=== PATIENT | female | born 1955 | race Caucasian/White ===

== ENCOUNTER 2024-01-23 18:45 | Inpatient (IN) | payer MEDICARE, OTHER ==
[~2024-01-23] VITALS: Ht 165.1 cm; Wt 80.1 kg
[2024-01-23 19:00] VITALS: PULSE 128; PULSE 129; RESP 20; O2SAT 98
[2024-01-23] MEDS ORDERED: 0.9% SODIUM CHLORIDE 10 ML SYRINGE IVP PRN (19:15)
[2024-01-23 19:45] LABS: ABG HCO3 23.1 mmol/L (22.0-26.0); ABG METHEMOGLOBIN 0.8 % (0.0-1.5); ABG OXYGEN CONTENT 16.6 mL/dL (15.0-23.0); ABG OXYGEN SATURATION 98.5 % (95.0-98.0); ABG OXYHEMOGLOBIN 97.7 % (94.0-100.0); ABG PCO2 41 mmHg (35-45); ABG PH 7.371 (7.35-7.450); PO2, ARTERIAL BG 125.2 mmHg (79.0-87.0); SITE, BLOOD GAS LFT RADIAL; SOURCE, BLOOD GAS ARTERIAL; TEMPERATURE, FAHRENHEIT, BG 102.4 FAHREN (96.0-98.6)
[2024-01-23] MEDS ORDERED: ONDANSETRON HCL 4 MG/2 ML VIAL IVP PRN (19:45)
[2024-01-23] MEDS ORDERED: BISACODYL 10 MG RECTAL RECTAL SUPPOSITORY PR PRN (19:45)
[2024-01-23 19:46] LABS: ALLEN TEST, BLOOD GAS Positive; O2 DEVICE,BLOOD GAS VENTILATOR (ROOM AIR); PEEP,BG 5 cm H2O; SPONTANEOUS VT, BG 414 ml; VT, ABG 400 ml
[2024-01-23 20:03] LABS: BASOPHILS % (AUTO) 0.3 % (0.0-2.0); EOSINOPHILS % (AUTO) 1.7 % (1.0-6.0); HEMATOCRIT 36.3 % (36-46); HEMOGLOBIN 11.6 g/dL (12.0-16.0); LYMPHOCYTES # (AUTO) 0.2 K/uL (1.0-4.8); LYMPHOCYTES % (AUTO) 2.3 % (22.0-44.0); MEAN CORPUSCULAR HEMOGLOBIN 28.6 pg (26.0-34.0); MEAN CORPUSCULAR VOLUME 90 fL (80-100); MONOCYTES # (AUTO) 0.5 K/uL (0.1-1.0); MONOCYTES % (AUTO) 4.8 % (2.0-9.0); NEUTROPHILS # (AUTO) 9.5 K/uL (1.8-7.7); PLATELET COUNT (AUTO) 408 K/uL (150-450); RED BLOOD CELL COUNT(AUTO) 4.05 MIL/uL (4.00-5.20); RED CELL DISTRIBUTION WIDTH 19.5 % (11.5-14.5); WHITE BLOOD COUNT (AUTO) 10.5 K/uL (4.5-11.0)
[2024-01-23] MEDS: PROPOFOL 1000 MG/ISO-OSM 100 ML IV PRN (20:03)
[2024-01-23 20:04] LABS: NEUTROPHILS % (AUTO) 90.9 % (40.0-70.0)
[2024-01-23 20:07] LABS: COVID AG,FIA SOURCE NASAL SWAB
[2024-01-23 20:09] LABS: ANION GAP 14 mmol/L (8-16); CALCIUM, TOTAL 9.5 mg/dL (8.8-10.5); CARBON DIOXIDE 25 mmol/L (22-29); CHLORIDE 99 mmol/L (98-107); CREATININE 1.78 mg/dL (0.60-1.30); GLOMERULAR FILTR. RATE CALC 28 mL/min (>60); GLUCOSE,RANDOM 168 mg/dL (70-110); INR 1.1 (0.9-1.1); POTASSIUM 4.8 mmol/L (3.5-5.1); PROTHROMBIN TIME 11.6 SEC (9.4-11.6); SODIUM SERUM 138 mmol/L (136-145); UREA NITROGEN, BLOOD 27 mg/dL (7-18)
[2024-01-23 20:10] LABS: APPEARANCE,URINE TURBID (CLEAR); BILIRUBIN,URINE NEGATIVE (NEGATIVE); COLOR,URINE DARK ORANGE (YELLOW); GLUCOSE, URINE (UA) 150-200 mg/dL (NEGATIVE); KETONES,URINE NEGATIVE (NEGATIVE); LEUKOCYTE ESTERASE ,URINE LARGE (NEGATIVE); NITRATE,URINE NEGATIVE (NEGATIVE); OCCULT BLOOD,URINE SMALL (NEGATIVE); PROTEIN,URINE 100-200,SEE CONFIRM mg/dL (NEGATIVE); SPECIFIC GRAVITIY, URINE 1.013 (1.003-1.030); UROBILINOGEN,URINE <=1.0 mg/dL (<=1.0)
[2024-01-23] MEDS: ACETAMINOPHEN 1000 MG/ISO-OSM 100 ML IV ONE (20:13)
[2024-01-23] MEDS: SODIUM CHLORIDE 0.9% 1,750 ML IV ONE (20:13)
[2024-01-23 20:14] LABS: PLATELET MORPHOLOGY COMMENT LARGE PLTS PRESENT; RBC MORPHOLOGY COMMENT NORMAL RBC MORPH
[2024-01-23 20:15] LABS: ALANINE AMINOTRANSFERASE 14 U/L (12-78); ALBUMIN 2.7 g/dL (3.4-5.0); ALKALINE PHOSPHATASE 115 U/L (46-116); ASPARTATE AMINOTRANSFERASE 32 U/L (15-37); BILIRUBIN,TOTAL 0.5 mg/dL (0.1-1.0); TOTAL PROTEIN, SERUM 9.4 g/dL (6.4-8.2)
[2024-01-23 20:17] LABS: TROPONIN I-HIGH SENSITIVITY 21 ng/L (<51)
[2024-01-23 20:19] LABS: B-TYPE NATRIURETIC PEPTIDE 103 pg/mL (0-100)
[2024-01-23 20:20] LABS: SULFOSALICYLIC ACID,URINE 3+ (Negative)
[2024-01-23 20:21] LABS: BACTERIA,URINE Few /HPF (None Seen); SQUAMOUS EPITHELIAL CELL,UR Moderate /LPF (None Seen); WBC,URINE >100 /HPF (0-5)
[2024-01-23] MEDS: AMPICILLIN SODIUM/SULBACTAM NA 3 GM in SODIUM CHLORIDE 0.9% 100 ML IV ONE (20:23)
[2024-01-23 20:25] LABS: LACTIC ACID 2.5 mmol/L (0.4-2.0)
[2024-01-23 20:28] LABS: SARS-COV2 (COVID) ANTIGEN,FIA Negative (Negative)
[2024-01-23 20:33] LABS: INFLUENZA TYPE A NEGATIVE FOR TYPE A (NEGATIVE); INFLUENZA TYPE B NEGATIVE FOR TYPE B (NEGATIVE)
[2024-01-23] MEDS: FentaNYL CIT 1000MCG/0.9% NACL 100 ML IV PRN (21:22)
[2024-01-23 22:13] VITALS: PULSE 105; RESP 21; O2SAT 100
[2024-01-24] VITALS (11 sets, daily range): BP systolic 95–119; BP diastolic 55–64; PULSE 79–97; RESP 20–28; TEMP 98.1–100.4; O2SAT 96–100
[2024-01-24] MEDS: CHLORHEXIDINE GLUCONATE 2% TOWELETTE [2'S/6'S] TP SCH
[2024-01-24] MEDS: HEPARIN SODIUM,PORCINE 5,000 UNITS/ML VIAL SQ SCH (01:16)
[2024-01-24] MEDS: PIPERACILLIN/TAZO 3.375 GM/D5W 50 ML IV SCH (02:44)
[2024-01-24] MEDS: PANTOPRAZOLE SODIUM 40 MG/VIAL IVP SCH (09:18)
[2024-01-24] MEDS: FentaNYL CIT 1000MCG/0.9% NACL 100 ML IV PRN (09:19)
[2024-01-24] MEDS ORDERED: SODIUM CHLORIDE 0.9% 250 ML IV ONE (09:26)
[2024-01-24 10:22] LABS: ABG BASE EXCESS -2.5 mmol/L (-2.0-3.0); ABG CARBOXYHEMOGLOBIN 0.3 % (0.0-1.5); ABG HCO3 22.5 mmol/L (22.0-26.0); ABG METHEMOGLOBIN 0.3 % (0.0-1.5); ABG OXYGEN CONTENT 14.1 mL/dL (15.0-23.0); ABG OXYGEN SATURATION 94.8 % (95.0-98.0); ABG OXYHEMOGLOBIN 94.2 % (94.0-100.0); ABG PCO2 41 mmHg (35-45); ABG PH 7.367 (7.35-7.450); ABG TOTAL HEMOGLOBIN 10.6 G/dL (12.0-18.0); PO2, ARTERIAL BG 79.2 mmHg (79.0-87.0); SOURCE, BLOOD GAS ARTERIAL; TEMPERATURE, FAHRENHEIT, BG 99.6 FAHREN (96.0-98.6)
[2024-01-24 10:25] LABS: ABG A-A DIFF O2 122.5 mmHg (10-20.0); ALLEN TEST, BLOOD GAS Positive; O2 DEVICE,BLOOD GAS VENTILATOR (ROOM AIR); SITE, BLOOD GAS LFT BRACHIAL
[2024-01-24 10:26] LABS: PEEP,BG 5 cm H2O; SPONTANEOUS VT, BG 372 ml; VT, ABG 400 ml
[2024-01-24 10:30] LABS: CALCIUM, TOTAL 8.4 mg/dL (8.8-10.5); CREATININE 1.73 mg/dL (0.60-1.30)
[2024-01-24 10:36] LABS: BILIRUBIN,TOTAL 0.2 mg/dL (0.1-1.0); TOTAL PROTEIN, SERUM 7.7 g/dL (6.4-8.2)
[2024-01-24 11:19] LABS: BASOPHILS % (AUTO) 0.5 % (0.0-2.0); HEMATOCRIT 32.9 % (36-46); HEMOGLOBIN 10.3 g/dL (12.0-16.0); LYMPHOCYTES # (AUTO) 0.3 K/uL (1.0-4.8); MEAN CORPUSCULAR HEMOGLOBIN 28.3 pg (26.0-34.0); MEAN CORPUSCULAR HGB CONC 31.4 G/dL (31.0-37.0); MEAN CORPUSCULAR VOLUME 90 fL (80-100); MONOCYTES # (AUTO) 0.6 K/uL (0.1-1.0); MONOCYTES % (AUTO) 6.7 % (2.0-9.0); NEUTROPHILS # (AUTO) 8.5 K/uL (1.8-7.7); PLATELET COUNT (AUTO) 337 K/uL (150-450); RED BLOOD CELL COUNT(AUTO) 3.65 MIL/uL (4.00-5.20); RED CELL DISTRIBUTION WIDTH 19.2 % (11.5-14.5); WHITE BLOOD COUNT (AUTO) 9.5 K/uL (4.5-11.0)
[2024-01-24 11:20] LABS: NEUTROPHILS % (AUTO) 88.8 % (40.0-70.0)
[2024-01-24 12:45] LABS: GLUCOMETER DEV NAME(LOC) ERT.5; GLUCOSE,POINT OF CARE 141 MG/DL (70-110)
[2024-01-24 22:26] LABS: GLUCOMETER DEV NAME(LOC) ICUN.5; GLUCOSE,POINT OF CARE 117 MG/DL (70-110)
[2024-01-24] MEDS: ETHYL ALCOHOL 62% ANTISEPTIC NASAL SANITIZER 0.6 ML AMPUL NASAL SCH (22:59)
[2024-01-25] VITALS (16 sets, daily range): BP systolic 91–116; BP diastolic 50–64; PULSE 73–89; RESP 19–24; TEMP 98.1–99; O2SAT 91–99
[2024-01-25 06:04] LABS: BASOPHILS % (AUTO) 0.2 % (0.0-2.0); EOSINOPHILS % (AUTO) 0.4 % (1.0-6.0); HEMATOCRIT 28.4 % (36-46); LYMPHOCYTES # (AUTO) 0.2 K/uL (1.0-4.8); LYMPHOCYTES % (AUTO) 4.4 % (22.0-44.0); MEAN CORPUSCULAR HEMOGLOBIN 28.6 pg (26.0-34.0); MEAN CORPUSCULAR HGB CONC 31.9 G/dL (31.0-37.0); MEAN CORPUSCULAR VOLUME 90 fL (80-100); MONOCYTES # (AUTO) 0.7 K/uL (0.1-1.0); MONOCYTES % (AUTO) 14.3 % (2.0-9.0); NEUTROPHILS # (AUTO) 4.1 K/uL (1.8-7.7); NEUTROPHILS % (AUTO) 80.7 % (40.0-70.0); PLATELET COUNT (AUTO) 262 K/uL (150-450); RED BLOOD CELL COUNT(AUTO) 3.16 MIL/uL (4.00-5.20); RED CELL DISTRIBUTION WIDTH 19.4 % (11.5-14.5); WHITE BLOOD COUNT (AUTO) 5.1 K/uL (4.5-11.0)
[2024-01-25 06:13] LABS: CALCIUM, TOTAL 8.2 mg/dL (8.8-10.5); CREATININE 1.79 mg/dL (0.60-1.30); POTASSIUM 3.8 mmol/L (3.5-5.1)
[2024-01-25 12:48] LABS: ABG A-A DIFF O2 133.9 mmHg (10-20.0); ABG BASE EXCESS -3.1 mmol/L (-2.0-3.0); ABG CARBOXYHEMOGLOBIN 0.3 % (0.0-1.5); ABG HCO3 22.1 mmol/L (22.0-26.0); ABG OXYGEN CONTENT 13.8 mL/dL (15.0-23.0); ABG OXYGEN SATURATION 93.9 % (95.0-98.0); ABG OXYHEMOGLOBIN 93.6 % (94.0-100.0); ABG PCO2 38 mmHg (35-45); ABG PH 7.382 (7.35-7.450); ABG TOTAL HEMOGLOBIN 10.4 G/dL (12.0-18.0); ALLEN TEST, BLOOD GAS Positive; O2 DEVICE,BLOOD GAS VENTILATOR (ROOM AIR); PO2, ARTERIAL BG 71.7 mmHg (79.0-87.0); SITE, BLOOD GAS LFT RADIAL; SOURCE, BLOOD GAS ARTERIAL; TEMPERATURE, FAHRENHEIT, BG 98.6 FAHREN (96.0-98.6); VENT MODE, BG CPAP (ROOM AIR)
[2024-01-25 12:49] LABS: CPAP, BG 0 cm H2O; PRESSURE SUPPORT, BG 8 cm H2O; SPONTANEOUS VT, BG 350 ml
[2024-01-25 16:50] LABS: GLUCOMETER DEV NAME(LOC) ICUN.5; GLUCOSE,POINT OF CARE 118 MG/DL (70-110)
[2024-01-26] VITALS (15 sets, daily range): BP systolic 91–140; BP diastolic 43–71; PULSE 65–80; RESP 20–26; TEMP 97–99.2; O2SAT 91–95
[2024-01-26 06:18] LABS: BASOPHILS % (AUTO) 0.4 % (0.0-2.0); EOSINOPHILS % (AUTO) 0.4 % (1.0-6.0); HEMATOCRIT 30.9 % (36-46); HEMOGLOBIN 9.7 g/dL (12.0-16.0); LYMPHOCYTES # (AUTO) 0.6 K/uL (1.0-4.8); LYMPHOCYTES % (AUTO) 13.7 % (22.0-44.0); MEAN CORPUSCULAR HEMOGLOBIN 28.6 pg (26.0-34.0); MEAN CORPUSCULAR HGB CONC 31.5 G/dL (31.0-37.0); MEAN CORPUSCULAR VOLUME 91 fL (80-100); MONOCYTES # (AUTO) 0.7 K/uL (0.1-1.0); MONOCYTES % (AUTO) 16.5 % (2.0-9.0); NEUTROPHILS # (AUTO) 2.8 K/uL (1.8-7.7); PLATELET COUNT (AUTO) 250 K/uL (150-450); RED CELL DISTRIBUTION WIDTH 19.8 % (11.5-14.5); WHITE BLOOD COUNT (AUTO) 4.1 K/uL (4.5-11.0)
[2024-01-26 06:20] LABS: ALBUMIN 1.8 g/dL (3.4-5.0); BILIRUBIN,TOTAL 0.4 mg/dL (0.1-1.0); CALCIUM, TOTAL 8.1 mg/dL (8.8-10.5); CREATININE 2.18 mg/dL (0.60-1.30); MAGNESIUM 1.7 mg/dL (1.80-2.40); PHOSPHORUS 5.1 mg/dL (2.5-4.9); POTASSIUM 3.7 mmol/L (3.5-5.1); TOTAL PROTEIN, SERUM 7.2 g/dL (6.4-8.2)
[2024-01-26 08:36] LABS: GLUCOMETER DEV NAME(LOC) ICU.S6; GLUCOSE,POINT OF CARE 119 MG/DL (70-110)
[2024-01-26 08:36] LABS: GLUCOMETER DEV NAME(LOC) ICU.S6; GLUCOSE,POINT OF CARE 105 MG/DL (70-110)
[2024-01-26 08:50] LABS: GLUCOMETER DEV NAME(LOC) ICUN.5; GLUCOSE,POINT OF CARE 120 MG/DL (70-110)
[2024-01-26 13:46] LABS: GLUCOMETER DEV NAME(LOC) ICU.S6; GLUCOSE,POINT OF CARE 120 MG/DL (70-110)
[2024-01-26] MEDS: PIPERACILLIN SODIUM/TAZOBACTAM 2.25 GM in DEXTROSE 5%-WATER 50 ML IV SCH (14:21)
[2024-01-26] MEDS: SODIUM CHLORIDE 0.9% 1,000 ML IV SCH (18:32)
[2024-01-26 18:40] LABS: GLUCOMETER DEV NAME(LOC) ICU.S6; GLUCOSE,POINT OF CARE 105 MG/DL (70-110)
[2024-01-27] VITALS (12 sets, daily range): BP systolic 97–132; BP diastolic 53–72; PULSE 64–88; RESP 19–34; TEMP 96.3–98.2; O2SAT 69–97
[2024-01-27 01:31] LABS: GLUCOMETER DEV NAME(LOC) ICUN.5; GLUCOSE,POINT OF CARE 105 MG/DL (70-110)
[2024-01-27 02:34] LABS: APPEARANCE,URINE TURBID (CLEAR); BILIRUBIN,URINE NEGATIVE (NEGATIVE); COLOR,URINE YELLOW (YELLOW); GLUCOSE, URINE (UA) 150-200 mg/dL (NEGATIVE); KETONES,URINE TRACE mg/dL (NEGATIVE); LEUKOCYTE ESTERASE ,URINE LARGE (NEGATIVE); NITRATE,URINE NEGATIVE (NEGATIVE); OCCULT BLOOD,URINE MODERATE (NEGATIVE); PROTEIN,URINE 100-200,SEE CONFIRM mg/dL (NEGATIVE); SPECIFIC GRAVITIY, URINE 1.013 (1.003-1.030); UROBILINOGEN,URINE <=1.0 mg/dL (<=1.0)
[2024-01-27 02:49] LABS: CREATININE,URINE RANDOM 61.6 mg/dL (30.0-125.0); PROTEIN,URINE RANDOM 132 mg/dL (0-11.9); SODIUM,URINE RANDOM 76 mmol/l (20-110); UREA NITROGEN,URINE RANDOM 508 mg/dL (350-1000)
[2024-01-27 02:58] LABS: SULFOSALICYLIC ACID,URINE 2+ (Negative)
[2024-01-27 02:59] LABS: BACTERIA,URINE Moderate /HPF (None Seen); SQUAMOUS EPITHELIAL CELL,UR Few /LPF (None Seen); YEAST,URINE Many /HPF (None Seen)
[2024-01-27 06:18] LABS: BASOPHILS % (AUTO) 0.5 % (0.0-2.0); EOSINOPHILS % (AUTO) 0.5 % (1.0-6.0); HEMATOCRIT 30.4 % (36-46); HEMOGLOBIN 9.6 g/dL (12.0-16.0); LYMPHOCYTES # (AUTO) 0.7 K/uL (1.0-4.8); LYMPHOCYTES % (AUTO) 17.2 % (22.0-44.0); MEAN CORPUSCULAR HEMOGLOBIN 28.4 pg (26.0-34.0); MEAN CORPUSCULAR HGB CONC 31.6 G/dL (31.0-37.0); MEAN CORPUSCULAR VOLUME 90 fL (80-100); MONOCYTES # (AUTO) 0.3 K/uL (0.1-1.0); MONOCYTES % (AUTO) 7.7 % (2.0-9.0); NEUTROPHILS # (AUTO) 3.1 K/uL (1.8-7.7); NEUTROPHILS % (AUTO) 74.1 % (40.0-70.0); PLATELET COUNT (AUTO) 204 K/uL (150-450); RED BLOOD CELL COUNT(AUTO) 3.38 MIL/uL (4.00-5.20); RED CELL DISTRIBUTION WIDTH 19.8 % (11.5-14.5); WHITE BLOOD COUNT (AUTO) 4.1 K/uL (4.5-11.0)
[2024-01-27 06:25] LABS: CALCIUM, TOTAL 7.9 mg/dL (8.8-10.5); CREATININE 2.36 mg/dL (0.60-1.30); POTASSIUM 3.4 mmol/L (3.5-5.1)
[2024-01-27] MEDS ORDERED: SODIUM CHLORIDE 0.9% 250 ML IV ONE (09:10)
[2024-01-27 10:09] LABS: ABG BASE EXCESS -7.8 mmol/L (-2.0-3.0); ABG CARBOXYHEMOGLOBIN 0.3 % (0.0-1.5); ABG HCO3 18.5 mmol/L (22.0-26.0); ABG METHEMOGLOBIN 0.3 % (0.0-1.5); ABG OXYGEN CONTENT 14.6 mL/dL (15.0-23.0); ABG OXYGEN SATURATION 94.6 % (95.0-98.0); ABG PCO2 35 mmHg (35-45); ABG PH 7.331 (7.35-7.450); PO2, ARTERIAL BG 71.3 mmHg (79.0-87.0); SOURCE, BLOOD GAS ARTERIAL; TEMPERATURE, FAHRENHEIT, BG 95.4 FAHREN (96.0-98.6)
[2024-01-27 10:10] LABS: ABG A-A DIFF O2 139.1 mmHg (10-20.0); ALLEN TEST, BLOOD GAS Positive; CPAP, BG 5 cm H2O; O2 DEVICE,BLOOD GAS VENTILATOR (ROOM AIR); PRESSURE SUPPORT, BG 8 cm H2O; SITE, BLOOD GAS LFT RADIAL; SPONTANEOUS VT, BG 658 ml; VENT MODE, BG CPAP (ROOM AIR)
[2024-01-27] MEDS: POTASSIUM PHOS,M-BASIC-D-BASIC 20 MEQ in DEXTROSE 5%-WATER 100 ML IV ONE (15:27)
[2024-01-27] MEDS: PIPERACILLIN SODIUM/TAZOBACTAM 2.25 GM in DEXTROSE 5%-WATER 50 ML IV SCH (17:10)
[2024-01-27 22:40] LABS: GLUCOMETER DEV NAME(LOC) ICUN.5; GLUCOSE,POINT OF CARE 99 MG/DL (70-110)
[2024-01-27 22:40] LABS: GLUCOMETER DEV NAME(LOC) ICU.S6; GLUCOSE,POINT OF CARE 91 MG/DL (70-110)
[2024-01-27 22:40] LABS: GLUCOMETER DEV NAME(LOC) ICU.S6; GLUCOSE,POINT OF CARE 111 MG/DL (70-110)
[2024-01-28] VITALS: BP 130/65; PULSE 87; RESP 16; TEMP 98.7; O2SAT 94
[2024-01-28] MEDS ORDERED: SODIUM CHLORIDE 0.9% 250 ML IV ONE (00:12)
[2024-01-28] MEDS: DEXTROSE 50%-WATER 25 GM/50 ML SYRINGE IVP PRN (00:19)
[2024-01-28 01:01] LABS: GLUCOMETER DEV NAME(LOC) ICU.S6; GLUCOSE,POINT OF CARE 70 MG/DL (70-110)
[2024-01-28 02:05] LABS: GLUCOMETER DEV NAME(LOC) ICUN.5; GLUCOSE,POINT OF CARE 156 MG/DL (70-110)
[2024-01-28 04:00] VITALS: BP 136/63; PULSE 84; RESP 34; TEMP 99; O2SAT 92
[2024-01-28 06:45] LABS: BASOPHILS % (AUTO) 0.2 % (0.0-2.0); EOSINOPHILS % (AUTO) 0.3 % (1.0-6.0); HEMATOCRIT 30.5 % (36-46); HEMOGLOBIN 9.9 g/dL (12.0-16.0); LYMPHOCYTES # (AUTO) 0.9 K/uL (1.0-4.8); LYMPHOCYTES % (AUTO) 16.2 % (22.0-44.0); MEAN CORPUSCULAR HEMOGLOBIN 28.6 pg (26.0-34.0); MEAN CORPUSCULAR HGB CONC 32.3 G/dL (31.0-37.0); MEAN CORPUSCULAR VOLUME 89 fL (80-100); MONOCYTES # (AUTO) 0.4 K/uL (0.1-1.0); MONOCYTES % (AUTO) 6.8 % (2.0-9.0); NEUTROPHILS # (AUTO) 4.1 K/uL (1.8-7.7); NEUTROPHILS % (AUTO) 76.5 % (40.0-70.0); PLATELET COUNT (AUTO) 203 K/uL (150-450); RED BLOOD CELL COUNT(AUTO) 3.45 MIL/uL (4.00-5.20); RED CELL DISTRIBUTION WIDTH 20.1 % (11.5-14.5); WHITE BLOOD COUNT (AUTO) 5.4 K/uL (4.5-11.0)
[2024-01-28 06:53] LABS: CALCIUM, TOTAL 7.8 mg/dL (8.8-10.5); CREATININE 2.57 mg/dL (0.60-1.30); POTASSIUM 3.3 mmol/L (3.5-5.1)
[2024-01-28 06:55] LABS: GLUCOMETER DEV NAME(LOC) ICUN.5; GLUCOSE,POINT OF CARE 111 MG/DL (70-110)
[2024-01-28 08:00] VITALS: BP 136/70; PULSE 87; RESP 32; TEMP 98.9; O2SAT 96
[2024-01-28] MEDS: SODIUM BICARBONATE 150 MEQ in DEXTROSE 5%-WATER 1,000 ML IV SCH (10:43)
[2024-01-28] MEDS: POTASSIUM PHOS,M-BASIC-D-BASIC 20 MEQ in DEXTROSE 5%-WATER 100 ML IV ONE (10:43)
[2024-01-28 12:00] VITALS: BP 114/61; PULSE 81; PULSE 94; RESP 20; TEMP 98.1; O2SAT 94
[2024-01-28 12:07] LABS: ABG BASE EXCESS -10.8 mmol/L (-2.0-3.0); ABG CARBOXYHEMOGLOBIN 0.3 % (0.0-1.5); ABG HCO3 16.9 mmol/L (22.0-26.0); ABG OXYGEN CONTENT 13.8 mL/dL (15.0-23.0); ABG OXYGEN SATURATION 94.9 % (95.0-98.0); ABG OXYHEMOGLOBIN 94.6 % (94.0-100.0); ABG PCO2 25 mmHg (35-45); ABG PH 7.379 (7.35-7.450); ABG TOTAL HEMOGLOBIN 10.3 G/dL (12.0-18.0); PO2, ARTERIAL BG 75.6 mmHg (79.0-87.0); SOURCE, BLOOD GAS ARTERIAL
[2024-01-28 12:08] LABS: ALLEN TEST, BLOOD GAS Positive; O2 DEVICE,BLOOD GAS CANNULA (ROOM AIR); SITE, BLOOD GAS LFT RADIAL
[2024-01-28] MEDS: MORPHINE SULFATE 2 MG/ML SYRINGE IVP PRN (14:00)
[2024-01-28 16:00] VITALS: BP 113/53; PULSE 71; RESP 23; TEMP 97.9; O2SAT 94
[2024-01-28 20:00] VITALS: BP 138/56; PULSE 78; RESP 25; TEMP 98.3; O2SAT 94
[2024-01-28 23:51] LABS: GLUCOMETER DEV NAME(LOC) ICUN.5; GLUCOSE,POINT OF CARE 134 MG/DL (70-110)
[2024-01-29] VITALS: BP 125/55; PULSE 76; RESP 38; TEMP 97.3; O2SAT 97
[2024-01-29 04:00] VITALS: BP 121/57; PULSE 69; RESP 35; TEMP 96.8; O2SAT 98
[2024-01-29 04:45] LABS: GLUCOMETER DEV NAME(LOC) ICUN.5; GLUCOSE,POINT OF CARE 129 MG/DL (70-110)
[2024-01-29 05:36] LABS: GLUCOMETER DEV NAME(LOC) ICUN.5; GLUCOSE,POINT OF CARE 124 MG/DL (70-110)
[2024-01-29 05:57] LABS: BASOPHILS % (AUTO) 0.2 % (0.0-2.0); EOSINOPHILS % (AUTO) 0.6 % (1.0-6.0); HEMATOCRIT 27.5 % (36-46); LYMPHOCYTES # (AUTO) 1.2 K/uL (1.0-4.8); LYMPHOCYTES % (AUTO) 20.9 % (22.0-44.0); MEAN CORPUSCULAR HEMOGLOBIN 28.9 pg (26.0-34.0); MEAN CORPUSCULAR HGB CONC 32.8 G/dL (31.0-37.0); MEAN CORPUSCULAR VOLUME 88 fL (80-100); MONOCYTES # (AUTO) 0.5 K/uL (0.1-1.0); MONOCYTES % (AUTO) 8.7 % (2.0-9.0); NEUTROPHILS # (AUTO) 3.9 K/uL (1.8-7.7); NEUTROPHILS % (AUTO) 69.6 % (40.0-70.0); PLATELET COUNT (AUTO) 180 K/uL (150-450); RED BLOOD CELL COUNT(AUTO) 3.12 MIL/uL (4.00-5.20); RED CELL DISTRIBUTION WIDTH 19.5 % (11.5-14.5); WHITE BLOOD COUNT (AUTO) 5.5 K/uL (4.5-11.0)
[2024-01-29 06:01] LABS: ALBUMIN 1.5 g/dL (3.4-5.0); BILIRUBIN,TOTAL 0.3 mg/dL (0.1-1.0); CALCIUM, TOTAL 7.5 mg/dL (8.8-10.5); CREATININE 2.79 mg/dL (0.60-1.30); TOTAL PROTEIN, SERUM 6.3 g/dL (6.4-8.2)
[2024-01-29 06:14] LABS: POTASSIUM 2.7 mmol/L (3.5-5.1)
[2024-01-29] MEDS: POTASSIUM CHL 10 MEQ/WATER 50 ML IV SCH (07:42)
[2024-01-29 08:00] VITALS: BP 131/65; PULSE 71; RESP 24; TEMP 97.1; O2SAT 97
[2024-01-29 12:00] VITALS: BP 132/54; PULSE 70; RESP 24; TEMP 97; O2SAT 94
[2024-01-29] MEDS: POTASSIUM CHLORIDE 10% 40 MEQ/30 ML LIQUID UDCUP NG SCH (12:02)
[2024-01-29] MEDS: INSULIN LISPRO 100 UNITS/ML SQ PRN (12:29)
[2024-01-29] MEDS: SODIUM BICARBONATE 75 MEQ in DEXTROSE 5%-WATER 1,000 ML IV SCH (12:55)
[2024-01-29 16:28] VITALS: BP 107/53; PULSE 74; RESP 17; TEMP 97.7; O2SAT 93
[2024-01-29 20:33] VITALS: BP 115/84; PULSE 82; RESP 20; TEMP 97.7; O2SAT 95
[2024-01-29 22:31] LABS: GLUCOMETER DEV NAME(LOC) 5N.1D; GLUCOSE,POINT OF CARE 142 MG/DL (70-110)
[2024-01-29 22:31] LABS: GLUCOMETER DEV NAME(LOC) 5N.1D; GLUCOSE,POINT OF CARE 136 MG/DL (70-110)
[2024-01-30] VITALS (8 sets, daily range): BP systolic 120–147; BP diastolic 66–107; PULSE 72–85; RESP 20–24; TEMP 97.5–98.3; O2SAT 93–97
[2024-01-30 00:56] LABS: GLUCOMETER DEV NAME(LOC) ICUN.5; GLUCOSE,POINT OF CARE 153 MG/DL (70-110)
[2024-01-30 02:25] LABS: GLUCOMETER DEV NAME(LOC) 5N.2C; GLUCOSE,POINT OF CARE 164 MG/DL (70-110)
[2024-01-30 06:51] LABS: GLUCOMETER DEV NAME(LOC) 5N.1D; GLUCOSE,POINT OF CARE 179 MG/DL (70-110)
[2024-01-30 06:57] LABS: BASOPHILS % (AUTO) 0.1 % (0.0-2.0); EOSINOPHILS % (AUTO) 0.5 % (1.0-6.0); HEMATOCRIT 27.7 % (36-46); LYMPHOCYTES # (AUTO) 1.3 K/uL (1.0-4.8); LYMPHOCYTES % (AUTO) 21.8 % (22.0-44.0); MEAN CORPUSCULAR HEMOGLOBIN 28.6 pg (26.0-34.0); MEAN CORPUSCULAR HGB CONC 32.3 G/dL (31.0-37.0); MEAN CORPUSCULAR VOLUME 88 fL (80-100); MONOCYTES # (AUTO) 0.7 K/uL (0.1-1.0); MONOCYTES % (AUTO) 11.1 % (2.0-9.0); NEUTROPHILS # (AUTO) 3.9 K/uL (1.8-7.7); NEUTROPHILS % (AUTO) 66.5 % (40.0-70.0); PLATELET COUNT (AUTO) 179 K/uL (150-450); RED BLOOD CELL COUNT(AUTO) 3.13 MIL/uL (4.00-5.20); RED CELL DISTRIBUTION WIDTH 19.6 % (11.5-14.5); WHITE BLOOD COUNT (AUTO) 5.9 K/uL (4.5-11.0)
[2024-01-30 07:02] LABS: ALBUMIN 1.5 g/dL (3.4-5.0); BILIRUBIN,TOTAL 0.2 mg/dL (0.1-1.0); CALCIUM, TOTAL 7.7 mg/dL (8.8-10.5); CREATININE 2.92 mg/dL (0.60-1.30); POTASSIUM 3.5 mmol/L (3.5-5.1); TOTAL PROTEIN, SERUM 6.5 g/dL (6.4-8.2)
[2024-01-30] MEDS ORDERED: SODIUM CHLORIDE 0.9% 500 ML IV ONE (10:48)
[2024-01-30 13:00] LABS: GLUCOMETER DEV NAME(LOC) 5N.2C; GLUCOSE,POINT OF CARE 201 MG/DL (70-110)
[2024-01-30] MEDS: ACETYLCYSTEINE 10% 100 MG/ML 4 ML NEB SOLUTION NEB SCH (14:00)
[2024-01-30] MEDS: ALBUTEROL SULFATE 2.5 MG/0.5 ML NEB SOLUTION NEB SCH (14:00)
[2024-01-30 18:21] LABS: GLUCOMETER DEV NAME(LOC) 5N.2C; GLUCOSE,POINT OF CARE 150 MG/DL (70-110)
[2024-01-30 23:06] LABS: GLUCOMETER DEV NAME(LOC) 5N.2C; GLUCOSE,POINT OF CARE 158 MG/DL (70-110)
[2024-01-31] VITALS (13 sets, daily range): BP systolic 127–156; BP diastolic 59–111; PULSE 71–91; RESP 18–22; TEMP 97.5–97.9; O2SAT 90–98
[2024-01-31] MEDS ORDERED: SODIUM CHLORIDE 0.9% 250 ML IV ONE (03:33)
[2024-01-31 07:57] LABS: BASOPHILS % (AUTO) 0.1 % (0.0-2.0); EOSINOPHILS % (AUTO) 0.3 % (1.0-6.0); HEMATOCRIT 29.8 % (36-46); HEMOGLOBIN 9.7 g/dL (12.0-16.0); LYMPHOCYTES # (AUTO) 1.2 K/uL (1.0-4.8); LYMPHOCYTES % (AUTO) 18.2 % (22.0-44.0); MEAN CORPUSCULAR HEMOGLOBIN 28.9 pg (26.0-34.0); MEAN CORPUSCULAR HGB CONC 32.5 G/dL (31.0-37.0); MEAN CORPUSCULAR VOLUME 89 fL (80-100); MONOCYTES # (AUTO) 0.8 K/uL (0.1-1.0); MONOCYTES % (AUTO) 12.5 % (2.0-9.0); NEUTROPHILS # (AUTO) 4.6 K/uL (1.8-7.7); NEUTROPHILS % (AUTO) 68.9 % (40.0-70.0); PLATELET COUNT (AUTO) 189 K/uL (150-450); RED BLOOD CELL COUNT(AUTO) 3.34 MIL/uL (4.00-5.20); RED CELL DISTRIBUTION WIDTH 19.3 % (11.5-14.5); WHITE BLOOD COUNT (AUTO) 6.6 K/uL (4.5-11.0)
[2024-01-31 08:05] LABS: GLUCOMETER DEV NAME(LOC) 5N.1D; GLUCOSE,POINT OF CARE 206 MG/DL (70-110)
[2024-01-31 08:11] LABS: ALBUMIN 1.5 g/dL (3.4-5.0); BILIRUBIN,TOTAL 0.3 mg/dL (0.1-1.0); CALCIUM, TOTAL 7.8 mg/dL (8.8-10.5); CREATININE 2.95 mg/dL (0.60-1.30); MAGNESIUM 1.4 mg/dL (1.80-2.40); PHOSPHORUS 2.3 mg/dL (2.5-4.9); POTASSIUM 3.9 mmol/L (3.5-5.1); TOTAL PROTEIN, SERUM 7.2 g/dL (6.4-8.2)
[2024-01-31] MEDS ORDERED: SODIUM CL IRRIG SOLN BOTTLE 250 ML IRRIG ONE (11:44)
[2024-01-31 12:56] LABS: GLUCOMETER DEV NAME(LOC) 5N.1D; GLUCOSE,POINT OF CARE 148 MG/DL (70-110)
[2024-01-31] MEDS: MAGNESIUM SULFATE 2 GM/WATER 50 ML IV ONE (14:26)
[2024-01-31 17:55] LABS: GLUCOMETER DEV NAME(LOC) 5N.1D; GLUCOSE,POINT OF CARE 172 MG/DL (70-110)
[2024-02-01] VITALS (16 sets, daily range): BP systolic 123–144; BP diastolic 54–95; PULSE 78–105; RESP 18–26; TEMP 97.5–98.7; O2SAT 91–100
[2024-02-01 07:43] LABS: ALBUMIN 1.4 g/dL (3.4-5.0); BILIRUBIN,TOTAL 0.2 mg/dL (0.1-1.0); CALCIUM, TOTAL 8.2 mg/dL (8.8-10.5); CREATININE 2.96 mg/dL (0.60-1.30); POTASSIUM 3.9 mmol/L (3.5-5.1); TOTAL PROTEIN, SERUM 6.7 g/dL (6.4-8.2)
[2024-02-01 07:50] LABS: BASOPHILS % (AUTO) 0.1 % (0.0-2.0); EOSINOPHILS % (AUTO) 0.3 % (1.0-6.0); HEMOGLOBIN 8.7 g/dL (12.0-16.0); LYMPHOCYTES # (AUTO) 1.3 K/uL (1.0-4.8); LYMPHOCYTES % (AUTO) 17.1 % (22.0-44.0); MEAN CORPUSCULAR HEMOGLOBIN 28.5 pg (26.0-34.0); MEAN CORPUSCULAR HGB CONC 32.3 G/dL (31.0-37.0); MEAN CORPUSCULAR VOLUME 88 fL (80-100); MONOCYTES # (AUTO) 1.1 K/uL (0.1-1.0); MONOCYTES % (AUTO) 14.1 % (2.0-9.0); NEUTROPHILS # (AUTO) 5.1 K/uL (1.8-7.7); NEUTROPHILS % (AUTO) 68.4 % (40.0-70.0); PLATELET COUNT (AUTO) 220 K/uL (150-450); RED BLOOD CELL COUNT(AUTO) 3.06 MIL/uL (4.00-5.20); RED CELL DISTRIBUTION WIDTH 19.4 % (11.5-14.5); WHITE BLOOD COUNT (AUTO) 7.5 K/uL (4.5-11.0)
[2024-02-01] MEDS ORDERED: 0.9% SODIUM CHLORIDE 5 ML NEB SOLUTION NEB ONE (19:28)
[2024-02-02] VITALS (17 sets, daily range): BP systolic 121–151; BP diastolic 60–95; PULSE 78–108; RESP 18–26; TEMP 97.9–99.3; O2SAT 90–96
[2024-02-02] MEDS: ACETAMINOPHEN 325 MG TABLET PO PRN (00:41)
[2024-02-02] MEDS ORDERED: 0.9% SODIUM CHLORIDE 5 ML NEB SOLUTION NEB ONE (07:19)
[2024-02-02 08:43] LABS: BASOPHILS % (AUTO) 0.3 % (0.0-2.0); EOSINOPHILS % (AUTO) 0.9 % (1.0-6.0); HEMATOCRIT 30.2 % (36-46); HEMOGLOBIN 9.7 g/dL (12.0-16.0); LYMPHOCYTES # (AUTO) 1.4 K/uL (1.0-4.8); LYMPHOCYTES % (AUTO) 16.1 % (22.0-44.0); MEAN CORPUSCULAR HEMOGLOBIN 28.7 pg (26.0-34.0); MEAN CORPUSCULAR HGB CONC 32.2 G/dL (31.0-37.0); MEAN CORPUSCULAR VOLUME 89 fL (80-100); MONOCYTES # (AUTO) 1.2 K/uL (0.1-1.0); MONOCYTES % (AUTO) 14.6 % (2.0-9.0); NEUTROPHILS # (AUTO) 5.7 K/uL (1.8-7.7); NEUTROPHILS % (AUTO) 68.1 % (40.0-70.0); PLATELET COUNT (AUTO) 249 K/uL (150-450); RED BLOOD CELL COUNT(AUTO) 3.38 MIL/uL (4.00-5.20); RED CELL DISTRIBUTION WIDTH 19.6 % (11.5-14.5); WHITE BLOOD COUNT (AUTO) 8.4 K/uL (4.5-11.0)
[2024-02-02 09:41] LABS: ALBUMIN 1.5 g/dL (3.4-5.0); BILIRUBIN,TOTAL 0.3 mg/dL (0.1-1.0); CALCIUM, TOTAL 8.4 mg/dL (8.8-10.5); CREATININE 2.98 mg/dL (0.60-1.30); POTASSIUM 4.1 mmol/L (3.5-5.1); TOTAL PROTEIN, SERUM 7.2 g/dL (6.4-8.2)
[2024-02-02 10:46] LABS: GLUCOMETER DEV NAME(LOC) 5S.2D; GLUCOSE,POINT OF CARE 187 MG/DL (70-110)
[2024-02-02 10:46] LABS: GLUCOMETER DEV NAME(LOC) 5S.2D; GLUCOSE,POINT OF CARE 152 MG/DL (70-110)
[2024-02-02 10:46] LABS: GLUCOMETER DEV NAME(LOC) 5S.2D; GLUCOSE,POINT OF CARE 207 MG/DL (70-110)
[2024-02-02 10:46] LABS: GLUCOMETER DEV NAME(LOC) 5S.2D; GLUCOSE,POINT OF CARE 156 MG/DL (70-110)
[2024-02-02 10:46] LABS: GLUCOMETER DEV NAME(LOC) 5S.2D; GLUCOSE,POINT OF CARE 193 MG/DL (70-110)
[2024-02-02 10:46] LABS: GLUCOMETER DEV NAME(LOC) 5S.2D; GLUCOSE,POINT OF CARE 187 MG/DL (70-110)
[2024-02-02 10:46] LABS: GLUCOMETER DEV NAME(LOC) 5S.2D; GLUCOSE,POINT OF CARE 195 MG/DL (70-110)
[2024-02-02 17:01] LABS: ABG BASE EXCESS 1.2 mmol/L (-2.0-3.0); ABG CARBOXYHEMOGLOBIN 0.2 % (0.0-1.5); ABG HCO3 25.6 mmol/L (22.0-26.0); ABG METHEMOGLOBIN 0.3 % (0.0-1.5); ABG OXYGEN CONTENT 12.3 mL/dL (15.0-23.0); ABG OXYGEN SATURATION 88.3 % (95.0-98.0); ABG OXYHEMOGLOBIN 87.9 % (94.0-100.0); ABG PCO2 35 mmHg (35-45); ABG PH 7.467 (7.35-7.450); ABG TOTAL HEMOGLOBIN 9.9 G/dL (12.0-18.0); ALLEN TEST, BLOOD GAS Positive; PO2, ARTERIAL BG 53.1 mmHg (79.0-87.0); SITE, BLOOD GAS LFT RADIAL; SOURCE, BLOOD GAS ARTERIAL; TEMPERATURE, FAHRENHEIT, BG 98.6 FAHREN (96.0-98.6)
[2024-02-02 17:02] LABS: ABG A-A DIFF O2 162.6 mmHg (10-20.0); O2 DEVICE,BLOOD GAS CANNULA (ROOM AIR)
[2024-02-02 19:01] LABS: GLUCOMETER DEV NAME(LOC) 5S.2D; GLUCOSE,POINT OF CARE 128 MG/DL (70-110)
[2024-02-02 21:55] LABS: GLUCOMETER DEV NAME(LOC) 5N.1D; GLUCOSE,POINT OF CARE 189 MG/DL (70-110)
[2024-02-02 21:55] LABS: GLUCOMETER DEV NAME(LOC) 5N.1D; GLUCOSE,POINT OF CARE 137 MG/DL (70-110)
[2024-02-02 22:13] LABS: ABG BASE EXCESS 1.2 mmol/L (-2.0-3.0); ABG CARBOXYHEMOGLOBIN 0.3 % (0.0-1.5); ABG HCO3 25.7 mmol/L (22.0-26.0); ABG OXYGEN CONTENT 13.8 mL/dL (15.0-23.0); ABG OXYGEN SATURATION 97.9 % (95.0-98.0); ABG OXYHEMOGLOBIN 97.6 % (94.0-100.0); ABG PCO2 33 mmHg (35-45); ABG PH 7.485 (7.35-7.450); ABG TOTAL HEMOGLOBIN 9.9 G/dL (12.0-18.0); PO2, ARTERIAL BG 102.9 mmHg (79.0-87.0); SOURCE, BLOOD GAS ARTERIAL; TEMPERATURE, FAHRENHEIT, BG 98.3 FAHREN (96.0-98.6)
[2024-02-02 22:14] LABS: ABG A-A DIFF O2 216.3 mmHg (10-20.0); ALLEN TEST, BLOOD GAS Positive; SITE, BLOOD GAS LFT RADIAL
[2024-02-02 22:15] LABS: O2 DEVICE,BLOOD GAS SIMPLE MASK (ROOM AIR)
[2024-02-03] VITALS (15 sets, daily range): BP systolic 130–162; BP diastolic 76–85; PULSE 77–119; RESP 18–31; TEMP 97.2–99; O2SAT 91–98
[2024-02-03 06:45] LABS: GLUCOMETER DEV NAME(LOC) 5N.1D; GLUCOSE,POINT OF CARE 104 MG/DL (70-110)
[2024-02-03 07:00] LABS: BASOPHILS % (AUTO) 0.1 % (0.0-2.0); EOSINOPHILS % (AUTO) 1.3 % (1.0-6.0); HEMATOCRIT 26.5 % (36-46); HEMOGLOBIN 8.7 g/dL (12.0-16.0); LYMPHOCYTES % (AUTO) 11.2 % (22.0-44.0); MEAN CORPUSCULAR HEMOGLOBIN 28.9 pg (26.0-34.0); MEAN CORPUSCULAR HGB CONC 32.9 G/dL (31.0-37.0); MEAN CORPUSCULAR VOLUME 88 fL (80-100); MONOCYTES # (AUTO) 1.2 K/uL (0.1-1.0); MONOCYTES % (AUTO) 12.7 % (2.0-9.0); NEUTROPHILS # (AUTO) 6.8 K/uL (1.8-7.7); NEUTROPHILS % (AUTO) 74.7 % (40.0-70.0); PLATELET COUNT (AUTO) 314 K/uL (150-450); RED BLOOD CELL COUNT(AUTO) 3.02 MIL/uL (4.00-5.20); RED CELL DISTRIBUTION WIDTH 19.4 % (11.5-14.5); WHITE BLOOD COUNT (AUTO) 9.2 K/uL (4.5-11.0)
[2024-02-03 07:23] LABS: ALBUMIN 1.4 g/dL (3.4-5.0); BILIRUBIN,TOTAL 0.4 mg/dL (0.1-1.0); CALCIUM, TOTAL 8.3 mg/dL (8.8-10.5); CREATININE 2.94 mg/dL (0.60-1.30); POTASSIUM 3.7 mmol/L (3.5-5.1)
[2024-02-03] MEDS: DEXTROSE 5%-0.45% SODIUM CHL 1,000 ML IV SCH (12:21)
[2024-02-03] MEDS: EPOETIN ALFA 10,000 UNITS/ML VIAL SQ ONE (12:22)
[2024-02-03] MEDS ORDERED: 0.9% SODIUM CHLORIDE 5 ML NEB SOLUTION NEB ONE (20:43)
[2024-02-04] VITALS (17 sets, daily range): BP systolic 113–143; BP diastolic 58–106; PULSE 94–122; RESP 16–40; TEMP 98.2–101.1; O2SAT 87–99
[2024-02-04 00:36] LABS: GLUCOMETER DEV NAME(LOC) 5S.2D; GLUCOSE,POINT OF CARE 141 MG/DL (70-110)
[2024-02-04 00:36] LABS: GLUCOMETER DEV NAME(LOC) 5S.2D; GLUCOSE,POINT OF CARE 131 MG/DL (70-110)
[2024-02-04 00:36] LABS: GLUCOMETER DEV NAME(LOC) 5S.2D; GLUCOSE,POINT OF CARE 116 MG/DL (70-110)
[2024-02-04] MEDS ORDERED: SODIUM CHLORIDE 0.9% 250 ML IV ONE ×2 (01:42→15:21)
[2024-02-04] MEDS: ACETAMINOPHEN 650 MG/ISO-OSM 65 ML IV PRN (03:34)
[2024-02-04] MEDS ORDERED: SODIUM CHLORIDE 0.9% 1,000 ML ONE (06:01)
[2024-02-04 06:59] LABS: BASOPHILS % (AUTO) 0.1 % (0.0-2.0); EOSINOPHILS % (AUTO) 0.1 % (1.0-6.0); HEMATOCRIT 27.8 % (36-46); LYMPHOCYTES # (AUTO) 0.5 K/uL (1.0-4.8); LYMPHOCYTES % (AUTO) 3.7 % (22.0-44.0); MEAN CORPUSCULAR HEMOGLOBIN 28.4 pg (26.0-34.0); MEAN CORPUSCULAR HGB CONC 32.3 G/dL (31.0-37.0); MEAN CORPUSCULAR VOLUME 88 fL (80-100); MONOCYTES # (AUTO) 1.2 K/uL (0.1-1.0); MONOCYTES % (AUTO) 9.1 % (2.0-9.0); NEUTROPHILS # (AUTO) 11.4 K/uL (1.8-7.7); PLATELET COUNT (AUTO) 360 K/uL (150-450); RED BLOOD CELL COUNT(AUTO) 3.16 MIL/uL (4.00-5.20); RED CELL DISTRIBUTION WIDTH 19.4 % (11.5-14.5)
[2024-02-04] MEDS: SODIUM CHLORIDE 0.9% 1,000 ML IV ONE (07:00)
[2024-02-04 07:11] LABS: ALBUMIN 1.4 g/dL (3.4-5.0); BILIRUBIN,TOTAL 0.4 mg/dL (0.1-1.0); CALCIUM, TOTAL 8.2 mg/dL (8.8-10.5); CREATININE 2.83 mg/dL (0.60-1.30); POTASSIUM 3.6 mmol/L (3.5-5.1); TOTAL PROTEIN, SERUM 7.4 g/dL (6.4-8.2)
[2024-02-04 07:15] LABS: GLUCOMETER DEV NAME(LOC) 5S.2D; GLUCOSE,POINT OF CARE 200 MG/DL (70-110)
[2024-02-04] MEDS: FUROSEMIDE 20 MG/2 ML VIAL IVP SCH (10:27)
[2024-02-04 12:53] LABS: APPEARANCE,URINE TURBID (CLEAR); BILIRUBIN,URINE NEGATIVE (NEGATIVE); COLOR,URINE YELLOW (YELLOW); GLUCOSE, URINE (UA) TRACE mg/dL (NEGATIVE); KETONES,URINE NEGATIVE (NEGATIVE); LEUKOCYTE ESTERASE ,URINE LARGE (NEGATIVE); NITRATE,URINE NEGATIVE (NEGATIVE); OCCULT BLOOD,URINE LARGE (NEGATIVE); PH,URINE 5.5 (5.0-8.0); PROTEIN,URINE 100-200,SEE CONFIRM mg/dL (NEGATIVE); SPECIFIC GRAVITIY, URINE 1.018 (1.003-1.030); UROBILINOGEN,URINE <=1.0 mg/dL (<=1.0)
[2024-02-04 13:00] LABS: SULFOSALICYLIC ACID,URINE 3+ (Negative)
[2024-02-04 13:02] LABS: BACTERIA,URINE Moderate /HPF (None Seen); SQUAMOUS EPITHELIAL CELL,UR Few /LPF (None Seen); WBC,URINE 51-100 /HPF (0-5); YEAST,URINE Many /HPF (None Seen)
[2024-02-04] MEDS ORDERED: 0.9% SODIUM CHLORIDE 5 ML NEB SOLUTION NEB ONE ×2 (15:30→18:47)
[2024-02-04 18:30] LABS: GLUCOMETER DEV NAME(LOC) ICUN.5; GLUCOSE,POINT OF CARE 184 MG/DL (70-110)
[2024-02-04 20:36] LABS: GLUCOMETER DEV NAME(LOC) ICU.S6; GLUCOSE,POINT OF CARE 164 MG/DL (70-110)
[2024-02-05] VITALS (17 sets, daily range): BP systolic 103–140; BP diastolic 59–74; PULSE 83–110; RESP 16–32; TEMP 97.7–99.7; O2SAT 90–100
[2024-02-05 01:16] LABS: GLUCOMETER DEV NAME(LOC) ICU.S6; GLUCOSE,POINT OF CARE 124 MG/DL (70-110)
[2024-02-05] MEDS ORDERED: 0.9% SODIUM CHLORIDE 5 ML NEB SOLUTION NEB ONE (01:38)
[2024-02-05 06:36] LABS: GLUCOMETER DEV NAME(LOC) ICU.S6; GLUCOSE,POINT OF CARE 127 MG/DL (70-110)
[2024-02-05 09:03] LABS: HEMOGLOBIN 8.5 g/dL (12.0-16.0); LYMPHOCYTES # (AUTO) 0.7 K/uL (1.0-4.8); LYMPHOCYTES % (AUTO) 5.9 % (22.0-44.0); MONOCYTES # (AUTO) 0.7 K/uL (0.1-1.0); NEUTROPHILS # (AUTO) 10.6 K/uL (1.8-7.7)
[2024-02-05 09:10] LABS: BASOPHILS % (AUTO) 0.1 % (0.0-2.0); EOSINOPHILS % (AUTO) 0.3 % (1.0-6.0); HEMATOCRIT 26.6 % (36-46); MEAN CORPUSCULAR HEMOGLOBIN 28.5 pg (26.0-34.0); MEAN CORPUSCULAR HGB CONC 32.1 G/dL (31.0-37.0); MEAN CORPUSCULAR VOLUME 89 fL (80-100); MONOCYTES % (AUTO) 5.6 % (2.0-9.0); PLATELET COUNT (AUTO) 418 K/uL (150-450); RED CELL DISTRIBUTION WIDTH 18.9 % (11.5-14.5)
[2024-02-05 09:15] LABS: ALBUMIN 1.4 g/dL (3.4-5.0); BILIRUBIN,TOTAL 0.4 mg/dL (0.1-1.0); CALCIUM, TOTAL 8.4 mg/dL (8.8-10.5); CREATININE 2.85 mg/dL (0.60-1.30); NEUTROPHILS % (AUTO) 88.1 % (40.0-70.0); POTASSIUM 3.3 mmol/L (3.5-5.1); TOTAL PROTEIN, SERUM 7.2 g/dL (6.4-8.2)
[2024-02-05] MEDS: FLUCONAZOLE 100 MG/NACL ISOOSM 50 ML IV SCH (09:30)
[2024-02-05] MEDS: POTASSIUM CHLORIDE 10 MEQ ER TABLET PO ONE (11:44)
[2024-02-05 16:56] LABS: GLUCOMETER DEV NAME(LOC) ICU.S6; GLUCOSE,POINT OF CARE 160 MG/DL (70-110)
[2024-02-05 23:26] LABS: GLUCOMETER DEV NAME(LOC) ICUN.5; GLUCOSE,POINT OF CARE 150 MG/DL (70-110)
[2024-02-06] VITALS (22 sets, daily range): BP systolic 99–168; BP diastolic 63–95; PULSE 57–112; RESP 19–35; TEMP 98.5–99.3; O2SAT 91–100
[2024-02-06 02:25] LABS: GLUCOMETER DEV NAME(LOC) ICU.S6; GLUCOSE,POINT OF CARE 132 MG/DL (70-110)
[2024-02-06 05:42] LABS: CALCIUM, TOTAL 8.6 mg/dL (8.8-10.5); CREATININE 2.8 mg/dL (0.60-1.30); POTASSIUM 3.3 mmol/L (3.5-5.1)
[2024-02-06 07:40] LABS: GLUCOMETER DEV NAME(LOC) ICUN.5; GLUCOSE,POINT OF CARE 127 MG/DL (70-110)
[2024-02-06] MEDS: POTASSIUM CHLORIDE 10% 40 MEQ/30 ML LIQUID UDCUP NG ONE (08:45)
[2024-02-06 08:57] LABS: BASOPHILS % (AUTO) 0.2 % (0.0-2.0); EOSINOPHILS % (AUTO) 1.8 % (1.0-6.0); HEMOGLOBIN 8.8 g/dL (12.0-16.0); LYMPHOCYTES # (AUTO) 0.7 K/uL (1.0-4.8); LYMPHOCYTES % (AUTO) 7.5 % (22.0-44.0); MEAN CORPUSCULAR HGB CONC 32.7 G/dL (31.0-37.0); MEAN CORPUSCULAR VOLUME 89 fL (80-100); MONOCYTES # (AUTO) 0.7 K/uL (0.1-1.0); MONOCYTES % (AUTO) 7.5 % (2.0-9.0); NEUTROPHILS # (AUTO) 7.6 K/uL (1.8-7.7); PLATELET COUNT (AUTO) 516 K/uL (150-450); RED BLOOD CELL COUNT(AUTO) 3.05 MIL/uL (4.00-5.20); RED CELL DISTRIBUTION WIDTH 19.1 % (11.5-14.5); WHITE BLOOD COUNT (AUTO) 9.2 K/uL (4.5-11.0)
[2024-02-06] MEDS ORDERED: ETOMIDATE 2 MG/ML 10 ML VIAL ONE (09:33)
[2024-02-06 09:51] LABS: ABG BASE EXCESS -1.2 mmol/L (-2.0-3.0); ABG CARBOXYHEMOGLOBIN 0.3 % (0.0-1.5); ABG HCO3 23.6 mmol/L (22.0-26.0); ABG METHEMOGLOBIN 0.3 % (0.0-1.5); ABG OXYGEN CONTENT 12.5 mL/dL (15.0-23.0); ABG OXYGEN SATURATION 89.3 % (95.0-98.0); ABG OXYHEMOGLOBIN 88.8 % (94.0-100.0); ABG PCO2 36 mmHg (35-45); ABG PH 7.422 (7.35-7.450); PO2, ARTERIAL BG 60.2 mmHg (79.0-87.0); SOURCE, BLOOD GAS ARTERIAL; TEMPERATURE, FAHRENHEIT, BG 98.9 FAHREN (96.0-98.6)
[2024-02-06 09:52] LABS: ALLEN TEST, BLOOD GAS Positive; O2 DEVICE,BLOOD GAS VENTI MASK (ROOM AIR); SITE, BLOOD GAS LFT RADIAL
[2024-02-06] MEDS: ROCURONIUM BROMIDE 10 MG/ML 5 ML VIAL IVP ONE (11:42)
[2024-02-06] MEDS: ETOMIDATE 2 MG/ML 10 ML VIAL IVP ONE (11:42)
[2024-02-06] MEDS: DEXMEDETOMIDINE HCL 400 MCG in SODIUM CHLORIDE 0.9% 96 ML IV PRN (11:43)
[2024-02-06 13:34] LABS: ABG BASE EXCESS -1.3 mmol/L (-2.0-3.0); ABG CARBOXYHEMOGLOBIN 0.3 % (0.0-1.5); ABG HCO3 23.5 mmol/L (22.0-26.0); ABG OXYGEN CONTENT 13.6 mL/dL (15.0-23.0); ABG OXYGEN SATURATION 96.1 % (95.0-98.0); ABG OXYHEMOGLOBIN 94.9 % (94.0-100.0); ABG PCO2 40 mmHg (35-45); ABG PH 7.392 (7.35-7.450); ABG TOTAL HEMOGLOBIN 10.1 G/dL (12.0-18.0); ALLEN TEST, BLOOD GAS Positive; O2 DEVICE,BLOOD GAS VENTILATOR (ROOM AIR); PEEP,BG 5 cm H2O; PO2, ARTERIAL BG 88.7 mmHg (79.0-87.0); SITE, BLOOD GAS LFT RADIAL; SOURCE, BLOOD GAS ARTERIAL; TEMPERATURE, FAHRENHEIT, BG 99.3 FAHREN (96.0-98.6); VT, ABG 400 ml
[2024-02-06 14:16] LABS: GLUCOMETER DEV NAME(LOC) ICUN.5; GLUCOSE,POINT OF CARE 168 MG/DL (70-110)
[2024-02-06] MEDS: POTASSIUM CHL 10 MEQ/WATER 50 ML IV ONE (16:44)
[2024-02-06] MEDS: HYDROCODONE/ACETAMINOPHEN 5-325 MG TABLET PO PRN (19:52)
[2024-02-06 20:00] LABS: GLUCOMETER DEV NAME(LOC) ICUN.5; GLUCOSE,POINT OF CARE 180 MG/DL (70-110)
[2024-02-06] MEDS ORDERED: SODIUM CHLORIDE 0.9% 500 ML IV ONE (22:14)
[2024-02-07] VITALS (21 sets, daily range): BP systolic 107–137; BP diastolic 58–80; PULSE 56–84; RESP 20–32; TEMP 97.4–98.7; O2SAT 96–100
[2024-02-07] MEDS ORDERED: SODIUM CHLORIDE 0.9% 250 ML IV ONE (00:39)
[2024-02-07 05:16] LABS: GLUCOMETER DEV NAME(LOC) ICUN.5; GLUCOSE,POINT OF CARE 168 MG/DL (70-110)
[2024-02-07 05:44] LABS: BASOPHILS % (AUTO) 0.2 % (0.0-2.0); EOSINOPHILS % (AUTO) 1.5 % (1.0-6.0); HEMATOCRIT 24.9 % (36-46); HEMOGLOBIN 8.1 g/dL (12.0-16.0); LYMPHOCYTES # (AUTO) 0.8 K/uL (1.0-4.8); LYMPHOCYTES % (AUTO) 11.3 % (22.0-44.0); MEAN CORPUSCULAR HEMOGLOBIN 28.8 pg (26.0-34.0); MEAN CORPUSCULAR HGB CONC 32.3 G/dL (31.0-37.0); MEAN CORPUSCULAR VOLUME 89 fL (80-100); MONOCYTES # (AUTO) 0.6 K/uL (0.1-1.0); MONOCYTES % (AUTO) 7.5 % (2.0-9.0); NEUTROPHILS # (AUTO) 5.9 K/uL (1.8-7.7); NEUTROPHILS % (AUTO) 79.5 % (40.0-70.0); PLATELET COUNT (AUTO) 463 K/uL (150-450); RED CELL DISTRIBUTION WIDTH 18.6 % (11.5-14.5); WHITE BLOOD COUNT (AUTO) 7.4 K/uL (4.5-11.0)
[2024-02-07 05:46] LABS: CALCIUM, TOTAL 8.7 mg/dL (8.8-10.5); CREATININE 2.67 mg/dL (0.60-1.30); PHOSPHORUS 2.7 mg/dL (2.5-4.9); POTASSIUM 3.2 mmol/L (3.5-5.1)
[2024-02-07 07:05] LABS: GLUCOMETER DEV NAME(LOC) ICU.S6; GLUCOSE,POINT OF CARE 154 MG/DL (70-110)
[2024-02-07] MEDS: POTASSIUM CHL 10 MEQ/WATER 50 ML IV SCH (11:12)
[2024-02-07 17:26] LABS: CALCIUM, TOTAL 8.6 mg/dL (8.8-10.5); CREATININE 2.73 mg/dL (0.60-1.30); MAGNESIUM 1.9 mg/dL (1.80-2.40); PHOSPHORUS 2.9 mg/dL (2.5-4.9); POTASSIUM 3.3 mmol/L (3.5-5.1)
[2024-02-07 19:15] LABS: GLUCOMETER DEV NAME(LOC) ICU.S6; GLUCOSE,POINT OF CARE 147 MG/DL (70-110)
[2024-02-07 19:20] LABS: GLUCOMETER DEV NAME(LOC) ICUN.5; GLUCOSE,POINT OF CARE 173 MG/DL (70-110)
[2024-02-08] VITALS (21 sets, daily range): BP systolic 148–167; BP diastolic 76–92; PULSE 52–96; RESP 18–31; TEMP 96.2–97.8; O2SAT 96–100
[2024-02-08 04:26] LABS: GLUCOMETER DEV NAME(LOC) ICUN.5; GLUCOSE,POINT OF CARE 157 MG/DL (70-110)
[2024-02-08 06:32] LABS: ALBUMIN 1.3 g/dL (3.4-5.0); BILIRUBIN,TOTAL 0.2 mg/dL (0.1-1.0); CALCIUM, TOTAL 8.7 mg/dL (8.8-10.5); CREATININE 2.46 mg/dL (0.60-1.30); MAGNESIUM 2.1 mg/dL (1.80-2.40); PHOSPHORUS 2.5 mg/dL (2.5-4.9); POTASSIUM 3.4 mmol/L (3.5-5.1); TOTAL PROTEIN, SERUM 7.5 g/dL (6.4-8.2)
[2024-02-08 08:56] LABS: GLUCOMETER DEV NAME(LOC) ICUN.5; GLUCOSE,POINT OF CARE 170 MG/DL (70-110)
[2024-02-08] MEDS: PIPERACILLIN SODIUM/TAZOBACTAM 2.25 GM in DEXTROSE 5%-WATER 50 ML IV SCH (09:04)
[2024-02-08] MEDS: POTASSIUM CHL 10 MEQ/WATER 50 ML IV SCH (09:05)
[2024-02-08] MEDS: AmLODIPine BESYLATE 5 MG TABLET PO SCH (15:16)
[2024-02-08 19:21] LABS: GLUCOMETER DEV NAME(LOC) ICUN.5; GLUCOSE,POINT OF CARE 164 MG/DL (70-110)
[2024-02-08 19:21] LABS: GLUCOMETER DEV NAME(LOC) ICUN.5; GLUCOSE,POINT OF CARE 165 MG/DL (70-110)
[2024-02-08] MEDS: FentaNYL CIT 1000MCG/0.9% NACL 100 ML IV PRN (21:23)
[2024-02-09] VITALS (24 sets, daily range): BP systolic 111–156; BP diastolic 60–87; PULSE 54–76; RESP 16–27; TEMP 96.9–98.9; O2SAT 95–99
[2024-02-09] MEDS ORDERED: SODIUM CHLORIDE 0.9% 250 ML IV ONE ×2 (00:28→09:57)
[2024-02-09] MEDS: HydrALAZINE HCL 20 MG/ML VIAL IVP PRN (05:22)
[2024-02-09 06:07] LABS: CALCIUM, TOTAL 8.8 mg/dL (8.8-10.5); CREATININE 2.48 mg/dL (0.60-1.30); MAGNESIUM 1.8 mg/dL (1.80-2.40); PHOSPHORUS 2.9 mg/dL (2.5-4.9); POTASSIUM 3.5 mmol/L (3.5-5.1)
[2024-02-09 06:11] LABS: GLUCOMETER DEV NAME(LOC) ICU.S6; GLUCOSE,POINT OF CARE 158 MG/DL (70-110)
[2024-02-09 06:11] LABS: BASOPHILS % (AUTO) 0.3 % (0.0-2.0); EOSINOPHILS % (AUTO) 1.5 % (1.0-6.0); HEMATOCRIT 27.2 % (36-46); HEMOGLOBIN 8.6 g/dL (12.0-16.0); LYMPHOCYTES # (AUTO) 1.3 K/uL (1.0-4.8); LYMPHOCYTES % (AUTO) 17.6 % (22.0-44.0); MEAN CORPUSCULAR HEMOGLOBIN 28.3 pg (26.0-34.0); MEAN CORPUSCULAR HGB CONC 31.5 G/dL (31.0-37.0); MEAN CORPUSCULAR VOLUME 90 fL (80-100); MONOCYTES # (AUTO) 1.1 K/uL (0.1-1.0); MONOCYTES % (AUTO) 14.3 % (2.0-9.0); NEUTROPHILS % (AUTO) 66.3 % (40.0-70.0); PLATELET COUNT (AUTO) 501 K/uL (150-450); RED BLOOD CELL COUNT(AUTO) 3.03 MIL/uL (4.00-5.20); RED CELL DISTRIBUTION WIDTH 19.3 % (11.5-14.5); WHITE BLOOD COUNT (AUTO) 7.5 K/uL (4.5-11.0)
[2024-02-09] MEDS: AMPICILLIN SODIUM/SULBACTAM NA 3 GM in SODIUM CHLORIDE 0.9% 100 ML IV SCH (15:30)
[2024-02-09] MEDS: POTASSIUM CHLORIDE 10% 40 MEQ/30 ML LIQUID UDCUP NG ONE (20:14)
[2024-02-10] VITALS (23 sets, daily range): BP systolic 127–152; BP diastolic 74–88; PULSE 65–92; RESP 20–32; TEMP 97.8–99.3; O2SAT 95–100
[2024-02-10 06:11] LABS: BASOPHILS % (AUTO) 0.7 % (0.0-2.0); EOSINOPHILS % (AUTO) 1.5 % (1.0-6.0); HEMATOCRIT 26.8 % (36-46); HEMOGLOBIN 8.6 g/dL (12.0-16.0); LYMPHOCYTES # (AUTO) 2.5 K/uL (1.0-4.8); LYMPHOCYTES % (AUTO) 32.6 % (22.0-44.0); MEAN CORPUSCULAR HEMOGLOBIN 29.1 pg (26.0-34.0); MEAN CORPUSCULAR HGB CONC 32.2 G/dL (31.0-37.0); MEAN CORPUSCULAR VOLUME 90 fL (80-100); MONOCYTES # (AUTO) 0.8 K/uL (0.1-1.0); MONOCYTES % (AUTO) 10.8 % (2.0-9.0); NEUTROPHILS # (AUTO) 4.2 K/uL (1.8-7.7); NEUTROPHILS % (AUTO) 54.4 % (40.0-70.0); PLATELET COUNT (AUTO) 547 K/uL (150-450); RED BLOOD CELL COUNT(AUTO) 2.97 MIL/uL (4.00-5.20); RED CELL DISTRIBUTION WIDTH 19.1 % (11.5-14.5); WHITE BLOOD COUNT (AUTO) 7.7 K/uL (4.5-11.0)
[2024-02-10 06:20] LABS: CALCIUM, TOTAL 8.9 mg/dL (8.8-10.5); CREATININE 2.36 mg/dL (0.60-1.30); MAGNESIUM 1.8 mg/dL (1.80-2.40); PHOSPHORUS 2.5 mg/dL (2.5-4.9); POTASSIUM 3.5 mmol/L (3.5-5.1)
[2024-02-10 07:11] LABS: GLUCOMETER DEV NAME(LOC) ICU.S6; GLUCOSE,POINT OF CARE 156 MG/DL (70-110)
[2024-02-10 07:11] LABS: GLUCOMETER DEV NAME(LOC) ICU.S6; GLUCOSE,POINT OF CARE 166 MG/DL (70-110)
[2024-02-10 07:11] LABS: GLUCOMETER DEV NAME(LOC) ICUN.5; GLUCOSE,POINT OF CARE 169 MG/DL (70-110)
[2024-02-10 07:11] LABS: GLUCOMETER DEV NAME(LOC) ICU.S6; GLUCOSE,POINT OF CARE 171 MG/DL (70-110)
[2024-02-10] MEDS ORDERED: SODIUM CHLORIDE 0.9% 250 ML IV ONE (15:47)
[2024-02-10 17:16] LABS: GLUCOMETER DEV NAME(LOC) ICU.S6; GLUCOSE,POINT OF CARE 217 MG/DL (70-110)
[2024-02-11] VITALS (21 sets, daily range): BP systolic 119–146; BP diastolic 58–79; PULSE 64–91; RESP 18–29; TEMP 98.4–99.9; O2SAT 94–100
[2024-02-11 01:25] LABS: GLUCOMETER DEV NAME(LOC) ICUN.5; GLUCOSE,POINT OF CARE 169 MG/DL (70-110)
[2024-02-11 02:06] LABS: GLUCOMETER DEV NAME(LOC) ICU.S6; GLUCOSE,POINT OF CARE 234 MG/DL (70-110)
[2024-02-11 05:31] LABS: GLUCOMETER DEV NAME(LOC) ICU.S6; GLUCOSE,POINT OF CARE 213 MG/DL (70-110)
[2024-02-11 06:13] LABS: CALCIUM, TOTAL 8.5 mg/dL (8.8-10.5); CREATININE 2.34 mg/dL (0.60-1.30); MAGNESIUM 1.7 mg/dL (1.80-2.40); POTASSIUM 3.2 mmol/L (3.5-5.1)
[2024-02-11] MEDS: MAGNESIUM SULFATE 2 GM/WATER 50 ML IV ONE (09:18)
[2024-02-11] MEDS: POTASSIUM PHOS,M-BASIC-D-BASIC 20 MEQ in DEXTROSE 5%-WATER 100 ML IV ONE (11:04)
[2024-02-11 12:25] LABS: GLUCOMETER DEV NAME(LOC) ICUN.5; GLUCOSE,POINT OF CARE 255 MG/DL (70-110)
[2024-02-11 15:27] LABS: CALCIUM, TOTAL 8.5 mg/dL (8.8-10.5); CREATININE 2.34 mg/dL (0.60-1.30); MAGNESIUM 2.1 mg/dL (1.80-2.40); PHOSPHORUS 2.8 mg/dL (2.5-4.9); POTASSIUM 3.6 mmol/L (3.5-5.1)
[2024-02-11] MEDS ORDERED: 0.9% SODIUM CHLORIDE 5 ML NEB SOLUTION NEB ONE (19:12)
[2024-02-11 23:36] LABS: GLUCOMETER DEV NAME(LOC) ICUN.5; GLUCOSE,POINT OF CARE 306 MG/DL (70-110)
[2024-02-12] VITALS (22 sets, daily range): BP systolic 116–155; BP diastolic 60–84; PULSE 66–82; RESP 16–29; TEMP 98.8–100; O2SAT 95–100
[2024-02-12 05:50] LABS: GLUCOMETER DEV NAME(LOC) ICU.S6; GLUCOSE,POINT OF CARE 307 MG/DL (70-110)
[2024-02-12 05:50] LABS: GLUCOMETER DEV NAME(LOC) ICU.S6; GLUCOSE,POINT OF CARE 298 MG/DL (70-110)
[2024-02-12] MEDS ORDERED: SODIUM CHLORIDE 0.9% 250 ML IV ONE (08:53)
[2024-02-12 09:47] LABS: BASOPHILS % (AUTO) 0.3 % (0.0-2.0); EOSINOPHILS % (AUTO) 2.4 % (1.0-6.0); HEMATOCRIT 26.8 % (36-46); HEMOGLOBIN 8.6 g/dL (12.0-16.0); LYMPHOCYTES # (AUTO) 3.4 K/uL (1.0-4.8); LYMPHOCYTES % (AUTO) 39.5 % (22.0-44.0); MEAN CORPUSCULAR HEMOGLOBIN 28.8 pg (26.0-34.0); MEAN CORPUSCULAR HGB CONC 32.1 G/dL (31.0-37.0); MEAN CORPUSCULAR VOLUME 90 fL (80-100); MONOCYTES % (AUTO) 11.4 % (2.0-9.0); NEUTROPHILS % (AUTO) 46.4 % (40.0-70.0); PLATELET COUNT (AUTO) 443 K/uL (150-450); RED BLOOD CELL COUNT(AUTO) 2.98 MIL/uL (4.00-5.20); RED CELL DISTRIBUTION WIDTH 19.1 % (11.5-14.5); WHITE BLOOD COUNT (AUTO) 8.6 K/uL (4.5-11.0)
[2024-02-12 09:59] LABS: CALCIUM, TOTAL 8.3 mg/dL (8.8-10.5); CREATININE 2.11 mg/dL (0.60-1.30); POTASSIUM 3.3 mmol/L (3.5-5.1)
[2024-02-12] MEDS: INSULIN GLARGINE,HUM.REC.ANLOG 100 UNITS/ML SQ SCH (10:05)
[2024-02-12] MEDS: POTASSIUM CHLORIDE 20 MEQ ER TABLET PO ONE (12:29)
[2024-02-12 16:42] LABS: PROTHROMBIN TIME 10.3 SEC (9.4-11.6)
[2024-02-13] VITALS (20 sets, daily range): BP systolic 119–148; BP diastolic 67–80; PULSE 66–95; RESP 20–33; TEMP 98.8–100.4; O2SAT 96–100
[2024-02-13 00:01] LABS: GLUCOMETER DEV NAME(LOC) ICU.S6; GLUCOSE,POINT OF CARE 286 MG/DL (70-110)
[2024-02-13 00:01] LABS: GLUCOMETER DEV NAME(LOC) ICU.S6; GLUCOSE,POINT OF CARE 296 MG/DL (70-110)
[2024-02-13 06:45] LABS: GLUCOMETER DEV NAME(LOC) ICU.S6; GLUCOSE,POINT OF CARE 329 MG/DL (70-110)
[2024-02-13 08:21] LABS: GLUCOMETER DEV NAME(LOC) ICUN.5; GLUCOSE,POINT OF CARE 290 MG/DL (70-110)
[2024-02-13 10:11] LABS: GLUCOMETER DEV NAME(LOC) ICUN.5; GLUCOSE,POINT OF CARE 320 MG/DL (70-110)
[2024-02-13] MEDS: INSULIN GLARGINE,HUM.REC.ANLOG 100 UNITS/ML SQ SCH (10:20)
[2024-02-13 11:50] LABS: GLUCOMETER DEV NAME(LOC) ICUN.5; GLUCOSE,POINT OF CARE 297 MG/DL (70-110)
[2024-02-13] MEDS ORDERED: SODIUM CHLORIDE 0.9% 250 ML IV ONE (11:51)
[2024-02-13 18:05] LABS: GLUCOMETER DEV NAME(LOC) ICU.S6; GLUCOSE,POINT OF CARE 301 MG/DL (70-110)
[2024-02-13] MEDS: LORazepam 2 MG/ML VIAL IVP PRN (18:17)
[2024-02-13] MEDS ORDERED: 0.9% SODIUM CHLORIDE 5 ML NEB SOLUTION NEB ONE (19:13)
[2024-02-13 19:56] LABS: GLUCOMETER DEV NAME(LOC) ICU.S6; GLUCOSE,POINT OF CARE 250 MG/DL (70-110)
[2024-02-14] VITALS (18 sets, daily range): BP systolic 92–123; BP diastolic 49–69; PULSE 64–88; RESP 20–22; TEMP 95.6–99.5; O2SAT 94–100
[2024-02-14 00:21] LABS: GLUCOMETER DEV NAME(LOC) ICU.S6; GLUCOSE,POINT OF CARE 305 MG/DL (70-110)
[2024-02-14] MEDS ORDERED: 0.9% SODIUM CHLORIDE 5 ML NEB SOLUTION NEB ONE ×2 (01:42→19:09)
[2024-02-14 06:27] LABS: BASOPHILS % (AUTO) 0.3 % (0.0-2.0); HEMATOCRIT 29.2 % (36-46); HEMOGLOBIN 9.4 g/dL (12.0-16.0); LYMPHOCYTES # (AUTO) 2.8 K/uL (1.0-4.8); LYMPHOCYTES % (AUTO) 29.8 % (22.0-44.0); MEAN CORPUSCULAR HEMOGLOBIN 29.2 pg (26.0-34.0); MEAN CORPUSCULAR HGB CONC 32.2 G/dL (31.0-37.0); MEAN CORPUSCULAR VOLUME 91 fL (80-100); MONOCYTES % (AUTO) 10.8 % (2.0-9.0); NEUTROPHILS # (AUTO) 5.4 K/uL (1.8-7.7); NEUTROPHILS % (AUTO) 57.1 % (40.0-70.0); PLATELET COUNT (AUTO) 433 K/uL (150-450); RED BLOOD CELL COUNT(AUTO) 3.21 MIL/uL (4.00-5.20); RED CELL DISTRIBUTION WIDTH 19.5 % (11.5-14.5); WHITE BLOOD COUNT (AUTO) 9.5 K/uL (4.5-11.0)
[2024-02-14 06:30] LABS: GLUCOMETER DEV NAME(LOC) ICU.S6; GLUCOSE,POINT OF CARE 187 MG/DL (70-110)
[2024-02-14 06:33] LABS: ALBUMIN 1.4 g/dL (3.4-5.0); ALKALINE PHOSPHATASE 71 U/L (46-116); ANION GAP 6 mmol/L (8-16); ASPARTATE AMINOTRANSFERASE 14 U/L (15-37); BILIRUBIN,TOTAL 0.2 mg/dL (0.1-1.0); CALCIUM, TOTAL 8.9 mg/dL (8.8-10.5); CARBON DIOXIDE 30 mmol/L (22-29); CHLORIDE 107 mmol/L (98-107); CREATININE 2.07 mg/dL (0.60-1.30); GLOMERULAR FILTR. RATE CALC 24 mL/min (>60); GLUCOSE,RANDOM 234 mg/dL (70-110); POTASSIUM 3.3 mmol/L (3.5-5.1); SODIUM SERUM 143 mmol/L (136-145); TOTAL PROTEIN, SERUM 7.3 g/dL (6.4-8.2); UREA NITROGEN, BLOOD 45 mg/dL (7-18)
[2024-02-14 06:45] LABS: ALANINE AMINOTRANSFERASE < 6 U/L (12-78)
[2024-02-14] MEDS: PROPOFOL 1000 MG/ISO-OSM 100 ML IV PRN (09:17)
[2024-02-14] MEDS: ROCURONIUM BROMIDE 10 MG/ML 5 ML VIAL IVP ONE (10:43)
[2024-02-14] MEDS: POTASSIUM CHL 10 MEQ/WATER 50 ML IV SCH (17:55)
[2024-02-14 18:11] LABS: GLUCOMETER DEV NAME(LOC) ICUN.5; GLUCOSE,POINT OF CARE 199 MG/DL (70-110)
[2024-02-14 20:15] LABS: GLUCOMETER DEV NAME(LOC) ICU.S6; GLUCOSE,POINT OF CARE 139 MG/DL (70-110)
[2024-02-14 23:51] LABS: GLUCOMETER DEV NAME(LOC) ICUN.5; GLUCOSE,POINT OF CARE 101 MG/DL (70-110)
[2024-02-15] VITALS (22 sets, daily range): BP systolic 96–118; BP diastolic 51–73; PULSE 74–94; RESP 20–22; TEMP 96.6–97.5; O2SAT 98–100
[2024-02-15] MEDS ORDERED: 0.9% SODIUM CHLORIDE 5 ML NEB SOLUTION NEB ONE ×2 (01:45→20:45)
[2024-02-15 06:35] LABS: GLUCOMETER DEV NAME(LOC) ICUN.5; GLUCOSE,POINT OF CARE 97 MG/DL (70-110)
[2024-02-15 07:39] LABS: CALCIUM, TOTAL 8.2 mg/dL (8.8-10.5); CREATININE 2.06 mg/dL (0.60-1.30); POTASSIUM 3.7 mmol/L (3.5-5.1)
[2024-02-15 07:45] LABS: ALBUMIN 1.3 g/dL (3.4-5.0); BILIRUBIN,TOTAL 0.2 mg/dL (0.1-1.0); MAGNESIUM 1.9 mg/dL (1.80-2.40); PHOSPHORUS 3.4 mg/dL (2.5-4.9); TOTAL PROTEIN, SERUM 6.8 g/dL (6.4-8.2)
[2024-02-15 08:07] LABS: INR 0.9 (0.9-1.1); PROTHROMBIN TIME 9.9 SEC (9.4-11.6)
[2024-02-15 09:27] LABS: BASOPHILS % (AUTO) 0.2 % (0.0-2.0); EOSINOPHILS % (AUTO) 1.4 % (1.0-6.0); HEMATOCRIT 28.2 % (36-46); HEMOGLOBIN 8.9 g/dL (12.0-16.0); LYMPHOCYTES % (AUTO) 19.5 % (22.0-44.0); MEAN CORPUSCULAR HEMOGLOBIN 28.6 pg (26.0-34.0); MEAN CORPUSCULAR HGB CONC 31.5 G/dL (31.0-37.0); MEAN CORPUSCULAR VOLUME 91 fL (80-100); MONOCYTES % (AUTO) 9.6 % (2.0-9.0); NEUTROPHILS # (AUTO) 7.2 K/uL (1.8-7.7); NEUTROPHILS % (AUTO) 69.3 % (40.0-70.0); PLATELET COUNT (AUTO) 386 K/uL (150-450); RED BLOOD CELL COUNT(AUTO) 3.11 MIL/uL (4.00-5.20); RED CELL DISTRIBUTION WIDTH 19.1 % (11.5-14.5); WHITE BLOOD COUNT (AUTO) 10.5 K/uL (4.5-11.0)
[2024-02-15 12:05] LABS: GLUCOMETER DEV NAME(LOC) ICUN.5; GLUCOSE,POINT OF CARE 95 MG/DL (70-110)
[2024-02-15] MEDS ORDERED: CeFAZolin SODIUM 1 GM VIAL ONE (12:46)
[2024-02-15] MEDS ORDERED: SODIUM CHLORIDE 0.9% 250 ML IV ONE ×2 (13:04→21:22)
[2024-02-15] MEDS: CeFAZolin 1 GM/DEXTROSE 50 ML IV ONE (13:06)
[2024-02-15 20:06] LABS: GLUCOMETER DEV NAME(LOC) ICUN.5; GLUCOSE,POINT OF CARE 80 MG/DL (70-110)
[2024-02-16] VITALS (17 sets, daily range): BP systolic 118–159; BP diastolic 62–88; PULSE 68–107; RESP 15–24; TEMP 96.2–97.7; O2SAT 98–100
[2024-02-16] MEDS ORDERED: 0.9% SODIUM CHLORIDE 5 ML NEB SOLUTION NEB ONE ×2 (01:38→19:14)
[2024-02-16 05:58] LABS: BASOPHILS % (AUTO) 0.6 % (0.0-2.0); EOSINOPHILS % (AUTO) 2.2 % (1.0-6.0); HEMATOCRIT 26.3 % (36-46); HEMOGLOBIN 8.5 g/dL (12.0-16.0); LYMPHOCYTES # (AUTO) 1.9 K/uL (1.0-4.8); LYMPHOCYTES % (AUTO) 20.6 % (22.0-44.0); MEAN CORPUSCULAR HEMOGLOBIN 29.2 pg (26.0-34.0); MEAN CORPUSCULAR HGB CONC 32.3 G/dL (31.0-37.0); MEAN CORPUSCULAR VOLUME 91 fL (80-100); MONOCYTES # (AUTO) 0.8 K/uL (0.1-1.0); MONOCYTES % (AUTO) 8.6 % (2.0-9.0); NEUTROPHILS # (AUTO) 6.4 K/uL (1.8-7.7); PLATELET COUNT (AUTO) 397 K/uL (150-450); RED BLOOD CELL COUNT(AUTO) 2.91 MIL/uL (4.00-5.20); RED CELL DISTRIBUTION WIDTH 19.3 % (11.5-14.5); WHITE BLOOD COUNT (AUTO) 9.5 K/uL (4.5-11.0)
[2024-02-16 06:01] LABS: CALCIUM, TOTAL 8.4 mg/dL (8.8-10.5); CREATININE 2.11 mg/dL (0.60-1.30); POTASSIUM 3.6 mmol/L (3.5-5.1)
[2024-02-16 07:51] LABS: GLUCOMETER DEV NAME(LOC) ICU.S6; GLUCOSE,POINT OF CARE 108 MG/DL (70-110)
[2024-02-16 07:51] LABS: GLUCOMETER DEV NAME(LOC) ICUN.5; GLUCOSE,POINT OF CARE 97 MG/DL (70-110)
[2024-02-16 09:26] LABS: GLUCOMETER DEV NAME(LOC) ICUN.5; GLUCOSE,POINT OF CARE 116 MG/DL (70-110)
[2024-02-16 09:41] LABS: GLUCOMETER DEV NAME(LOC) ICUN.5; GLUCOSE,POINT OF CARE 132 MG/DL (70-110)
[2024-02-16 12:40] LABS: GLUCOMETER DEV NAME(LOC) ICU.S6; GLUCOSE,POINT OF CARE 133 MG/DL (70-110)
== END 2024-02-16 20:25 | DRG 4 ==
LOC: EMS 18:46 → EDH 23:39 → ICU 01-24 08:25 → 5N 01-29 15:55 → ICU 02-04 13:11
PROVIDERS: ADMIT Internal Medicine; ATTEND Internal Medicine
PROC: 5A1945Z Respiratory Ventilation, 24-96 Consecutive Hours (ICD-10-PCS; principal; 2024-01-23)
PROC: 0BH18EZ Insertion of Endotracheal Airway into Trachea, Via Natural or Artificial Opening Endoscopic (ICD-10-PCS; 2024-01-23)
PROC: 0DH63UZ Insertion of Feeding Device into Stomach, Percutaneous Approach (ICD-10-PCS; 2024-02-04)
PROC: 0BH18EZ Insertion of Endotracheal Airway into Trachea, Via Natural or Artificial Opening Endoscopic (ICD-10-PCS; 2024-02-05)
PROC: 5A1955Z Respiratory Ventilation, Greater than 96 Consecutive Hours (ICD-10-PCS; 2024-02-06)
PROC: 05HB33Z Insertion of Infusion Device into Right Basilic Vein, Percutaneous Approach (ICD-10-PCS; 2024-02-07)
PROC: 0B113F4 Bypass Trachea to Cutaneous with Tracheostomy Device, Percutaneous Approach (ICD-10-PCS; 2024-02-14)
DX: A41.9 Sepsis, unspecified organism (principal); E43 Unspecified severe protein-calorie malnutrition; J69.0 Pneumonitis due to inhalation of food and vomit; N17.0 Acute kidney failure with tubular necrosis; J96.01 Acute respiratory failure with hypoxia; N39.0 Urinary tract infection, site not specified; I69.354 Hemiplegia and hemiparesis following cerebral infarction affecting left non-dominant side; E87.0 Hyperosmolality and hypernatremia; E87.20 Acidosis, unspecified; I13.0 Hypertensive heart and chronic kidney disease with heart failure and stage 1 through stage 4 chronic kidney disease, or unspecified chronic kidney disease; R65.20 Severe sepsis without septic shock; F01.50 Vascular dementia, unspecified severity, without behavioral disturbance, psychotic disturbance, mood disturbance, and anxiety; Z20.822 Contact with and (suspected) exposure to COVID-19; E11.22 Type 2 diabetes mellitus with diabetic chronic kidney disease; D64.9 Anemia, unspecified; E87.6 Hypokalemia; N18.9 Chronic kidney disease, unspecified; K44.9 Diaphragmatic hernia without obstruction or gangrene; I48.91 Unspecified atrial fibrillation; R62.7 Adult failure to thrive; Z68.29 Body mass index [BMI] 29.0-29.9, adult; E83.39 Other disorders of phosphorus metabolism; B37.9 Candidiasis, unspecified; E83.42 Hypomagnesemia; E88.09 Other disorders of plasma-protein metabolism, not elsewhere classified; Z79.4 Long term (current) use of insulin; Z93.1 Gastrostomy status
CPT/HCPCS: 31624; 36245; 36569; 36600; 71045; 71250; 74018; 76770; 76937; 80048; 80053; 81001; 81002; 82570; 82805; 82962; 83605; 83735; 83880; 84100; 84132; 84145; 84156; 84300; 84484; 84540; 85025; 85610; 85730; 87015; 87040; 87070; 87081; 87086; 87101; 87186; 87205; 87206; 87220; 87481; 87804; 88108; 88305; 92526; 92610; 93005; 93970; 94002; 94003; 94640; 94799; 97163; 97167; 97530; 99291; C9113; J0131; J0295; J0360; J0690; J0885; J1450; J1644; J1815; J1940; J2060; J2270; J2543; J2704; J3010; J3475; J3480; J3490; J7030; J7040; J7050; J7060; 36415-L1; 36415-TC; J7613

== ENCOUNTER 2024-05-20 20:24 | Inpatient (IN) | payer MEDICARE, OTHER ==
[~2024-05-20] VITALS: Ht 167.6 cm; Wt 87.9 kg
[~2024-05-20 20:24] MED LIST: ACET-2247 PO; ALBU2.5V39 NEB; AMLO-258 PO; ATOR10TA PO; CHLO3800 TP; FURO20TA5 IV; INSU100V SQ; LEVO200 PO; LOSA-381 PO; MERO1VIA27 IV; PANT40VI14 IVP
[2024-05-20 21:25] VITALS: PULSE 94; RESP 27; O2SAT 99
[2024-05-20] MEDS: SODIUM CHLORIDE 0.9% 1,650 ML IV ONE (22:54)
[2024-05-20] MEDS: 0.9% SODIUM CHLORIDE 10 ML SYRINGE IVP PRN (22:55)
[2024-05-20] MEDS: CefTRIAXone 1 GM/DEXTROSE 50 ML IV ONE (22:55)
[2024-05-20 22:57] LABS: ANION GAP 9 mmol/L (8-16); CARBON DIOXIDE 27 mmol/L (22-29); CHLORIDE 101 mmol/L (98-107); CREATININE 1.25 mg/dL (0.60-1.30); GLUCOSE,RANDOM 122 mg/dL (70-110); POTASSIUM 4.4 mmol/L (3.5-5.1); SODIUM SERUM 137 mmol/L (136-145); UREA NITROGEN, BLOOD 43 mg/dL (7-18)
[2024-05-20 22:58] LABS: CALCIUM, TOTAL 8.8 mg/dL (8.8-10.5); GLOMERULAR FILTR. RATE CALC 43 mL/min (>60)
[2024-05-20 23:00] LABS: PROTHROMBIN TIME 11.4 SEC (9.4-11.6)
[2024-05-20 23:03] LABS: ALANINE AMINOTRANSFERASE 114 U/L (12-78); ALBUMIN 1.9 g/dL (3.4-5.0); ASPARTATE AMINOTRANSFERASE 106 U/L (15-37); BILIRUBIN,TOTAL 2.4 mg/dL (0.1-1.0); TOTAL PROTEIN, SERUM 9.3 g/dL (6.4-8.2)
[2024-05-20 23:05] LABS: TROPONIN I-HIGH SENSITIVITY 42 ng/L (<51)
[2024-05-20 23:06] LABS: LACTIC ACID 0.7 mmol/L (0.4-2.0)
[2024-05-20 23:21] LABS: AMMONIA 8 umol/L (11-32)
[2024-05-20 23:29] LABS: ALKALINE PHOSPHATASE 1182 U/L (46-116)
[2024-05-20 23:33] LABS: COVID AG,FIA SOURCE NASAL SWAB
[2024-05-20 23:42] LABS: SARS-COV2 (COVID) ANTIGEN,FIA Negative (Negative)
[2024-05-20 23:43] LABS: INFLUENZA TYPE A NEGATIVE FOR TYPE A (NEGATIVE); INFLUENZA TYPE B NEGATIVE FOR TYPE B (NEGATIVE)
[2024-05-20 23:50] LABS: B-TYPE NATRIURETIC PEPTIDE 1020 pg/mL (0-100)
[2024-05-21] VITALS (24 sets, daily range): BP systolic 126–162; BP diastolic 63–94; PULSE 74–134; RESP 20–29; TEMP 97.5–99.1; O2SAT 95–100
[2024-05-21 00:05] LABS: APPEARANCE,URINE HAZY (CLEAR); BILIRUBIN,URINE NEGATIVE (NEGATIVE); COLOR,URINE YELLOW (YELLOW); GLUCOSE, URINE (UA) NEGATIVE (NEGATIVE); KETONES,URINE NEGATIVE (NEGATIVE); LEUKOCYTE ESTERASE ,URINE LARGE (NEGATIVE); NITRATE,URINE NEGATIVE (NEGATIVE); OCCULT BLOOD,URINE MODERATE (NEGATIVE); PROTEIN,URINE 30-70 mg/dL (NEGATIVE); SPECIFIC GRAVITIY, URINE 1.016 (1.003-1.030)
[2024-05-21 00:23] LABS: BACTERIA,URINE Few /HPF (None Seen); YEAST,URINE Moderate /HPF (None Seen)
[2024-05-21 00:24] LABS: SQUAMOUS EPITHELIAL CELL,UR Few /LPF (None Seen)
[2024-05-21 00:38] LABS: BASOPHILS % (AUTO) 0.6 % (0.0-2.0); HEMATOCRIT 33.1 % (36-46); HEMOGLOBIN 11.1 g/dL (12.0-16.0); LYMPHOCYTES % (AUTO) 12.4 % (22.0-44.0); MEAN CORPUSCULAR HEMOGLOBIN 35.4 pg (26.0-34.0); MEAN CORPUSCULAR HGB CONC 33.6 G/dL (31.0-37.0); MEAN CORPUSCULAR VOLUME 105 fL (80-100); MONOCYTES # (AUTO) 1.1 K/uL (0.1-1.0); MONOCYTES % (AUTO) 7.1 % (2.0-9.0); NEUTROPHILS # (AUTO) 8.6 K/uL (1.8-7.7); NEUTROPHILS % (AUTO) 54.7 % (40.0-70.0); RED BLOOD CELL COUNT(AUTO) 3.14 MIL/uL (4.00-5.20); RED CELL DISTRIBUTION WIDTH 18.1 % (11.5-14.5); WHITE BLOOD COUNT (AUTO) 15.8 K/uL (4.5-11.0)
[2024-05-21 00:44] LABS: EOSINOPHILS % (AUTO) 25.2 % (1.0-6.0)
[2024-05-21 01:04] LABS: PATHOLOGY REVIEW, DIFF YES; PLATELET COUNT (AUTO) 2 K/uL (150-450)
[2024-05-21 01:05] LABS: RBC MORPHOLOGY COMMENT ABNORMAL RBC MORPH
[2024-05-21] MEDS: AZITHROMYCIN 500 MG/NS 250 ML IV ONE (01:56)
[2024-05-21 02:13] LABS: BASOPHILS % (AUTO) 0.7 % (0.0-2.0); HEMATOCRIT 32.8 % (36-46); HEMOGLOBIN 10.9 g/dL (12.0-16.0); LYMPHOCYTES # (AUTO) 1.6 K/uL (1.0-4.8); LYMPHOCYTES % (AUTO) 12.6 % (22.0-44.0); MEAN CORPUSCULAR HEMOGLOBIN 35.1 pg (26.0-34.0); MEAN CORPUSCULAR HGB CONC 33.3 G/dL (31.0-37.0); MEAN CORPUSCULAR VOLUME 106 fL (80-100); MONOCYTES # (AUTO) 1.2 K/uL (0.1-1.0); MONOCYTES % (AUTO) 9.4 % (2.0-9.0); NEUTROPHILS # (AUTO) 6.8 K/uL (1.8-7.7); NEUTROPHILS % (AUTO) 53.2 % (40.0-70.0); RED BLOOD CELL COUNT(AUTO) 3.11 MIL/uL (4.00-5.20); RED CELL DISTRIBUTION WIDTH 18.5 % (11.5-14.5); WHITE BLOOD COUNT (AUTO) 12.9 K/uL (4.5-11.0)
[2024-05-21 02:29] LABS: EOSINOPHILS % (AUTO) 24.1 % (1.0-6.0)
[2024-05-21 02:30] LABS: RBC MORPHOLOGY COMMENT ABNORMAL RBC MORPH
[2024-05-21 02:31] LABS: PLATELET COUNT (AUTO) 3 K/uL (150-450)
[2024-05-21 03:20] LABS: BASOPHILS % (AUTO) 0.7 % (0.0-2.0); HEMATOCRIT 31.1 % (36-46); HEMOGLOBIN 10.4 g/dL (12.0-16.0); LYMPHOCYTES # (AUTO) 1.5 K/uL (1.0-4.8); LYMPHOCYTES % (AUTO) 10.6 % (22.0-44.0); MEAN CORPUSCULAR HEMOGLOBIN 35.1 pg (26.0-34.0); MEAN CORPUSCULAR HGB CONC 33.3 G/dL (31.0-37.0); MEAN CORPUSCULAR VOLUME 105 fL (80-100); MONOCYTES # (AUTO) 1.2 K/uL (0.1-1.0); MONOCYTES % (AUTO) 8.3 % (2.0-9.0); NEUTROPHILS # (AUTO) 7.8 K/uL (1.8-7.7); NEUTROPHILS % (AUTO) 54.5 % (40.0-70.0); RED BLOOD CELL COUNT(AUTO) 2.95 MIL/uL (4.00-5.20); RED CELL DISTRIBUTION WIDTH 18.4 % (11.5-14.5); WHITE BLOOD COUNT (AUTO) 14.2 K/uL (4.5-11.0)
[2024-05-21 03:27] LABS: EOSINOPHILS % (AUTO) 25.9 % (1.0-6.0); PLATELET COUNT (AUTO) 3 K/uL (150-450); RBC MORPHOLOGY COMMENT ABNORMAL RBC MORPH
[2024-05-21] MEDS ORDERED: MORPHINE SULFATE 2 MG/ML SYRINGE IVP PRN (12:00)
[2024-05-21] MEDS ORDERED: BISACODYL 10 MG RECTAL RECTAL SUPPOSITORY PR PRN (12:00)
[2024-05-21] MEDS ORDERED: ONDANSETRON HCL 4 MG/2 ML VIAL IVP PRN (12:00)
[2024-05-21] MEDS ORDERED: MAGNESIUM HYDROXIDE SUSPENSION 30 ML UDCUP PO PRN (12:00)
[2024-05-21] MEDS ORDERED: ZOLPIDEM TARTRATE 5 MG TABLET PO PRN (12:00)
[2024-05-21] MEDS ORDERED: SODIUM CHLORIDE 0.9% 250 ML IV ONE ×2 (12:34→16:02)
[2024-05-21] MEDS: MEROPENEM 1 GM in SODIUM CHLORIDE 0.9% 100 ML IV SCH (12:38)
[2024-05-21] MEDS: VANCOMYCIN 1.25 GM/WATER(PEG) 250 ML IV ONE (14:05)
[2024-05-21] MEDS: *CLINICAL-LEVOFLOXACIN IVPB DOSING CLINICAL ONE (15:38)
[2024-05-21] MEDS ORDERED: MEROPENEM 1 GM VIAL IV SCH (16:00)
[2024-05-21] MEDS ORDERED: HEPARIN SODIUM,PORCINE 5,000 UNITS/ML VIAL SQ SCH (16:00)
[2024-05-21] MEDS: MetroNIDAZOLE 500 MG TABLET GT SCH (18:03)
[2024-05-21] MEDS: LEVOFLOXACIN 750 MG/D5% WATER 150 ML IV SCH (18:03)
[2024-05-21] MEDS: ATORVASTATIN CALCIUM 10 MG TABLET PO SCH (20:27)
[2024-05-21] MEDS: DOCUSATE SODIUM 100 MG CAPSULE PO SCH (20:27)
[2024-05-21] MEDS ORDERED: SODIUM CHLORIDE 0.9% 1,000 ML ONE (20:43)
[2024-05-22] VITALS (18 sets, daily range): BP systolic 129–156; BP diastolic 74–83; PULSE 79–101; RESP 17–40; TEMP 97.7–99; O2SAT 99–100
[2024-05-22] MEDS: LEVOTHYROXINE SODIUM 200 MCG TABLET PO SCH (05:35)
[2024-05-22 06:31] LABS: BASOPHILS % (AUTO) 0.8 % (0.0-2.0); HEMATOCRIT 27.5 % (36-46); HEMOGLOBIN 9.1 g/dL (12.0-16.0); LYMPHOCYTES # (AUTO) 1.3 K/uL (1.0-4.8); LYMPHOCYTES % (AUTO) 10.8 % (22.0-44.0); MEAN CORPUSCULAR HEMOGLOBIN 35.4 pg (26.0-34.0); MEAN CORPUSCULAR HGB CONC 33.2 G/dL (31.0-37.0); MEAN CORPUSCULAR VOLUME 107 fL (80-100); MONOCYTES % (AUTO) 8.4 % (2.0-9.0); NEUTROPHILS % (AUTO) 60.2 % (40.0-70.0); RED BLOOD CELL COUNT(AUTO) 2.59 MIL/uL (4.00-5.20); RED CELL DISTRIBUTION WIDTH 17.5 % (11.5-14.5); WHITE BLOOD COUNT (AUTO) 11.7 K/uL (4.5-11.0)
[2024-05-22 06:37] LABS: CALCIUM, TOTAL 8.7 mg/dL (8.8-10.5); CREATININE 0.97 mg/dL (0.60-1.30); POTASSIUM 3.9 mmol/L (3.5-5.1)
[2024-05-22 06:48] LABS: EOSINOPHILS % (AUTO) 19.8 % (1.0-6.0); PLATELET COUNT (AUTO) 10 K/uL (150-450); RBC MORPHOLOGY COMMENT ABNORMAL RBC MORPH
[2024-05-22] MEDS ORDERED: VANCOMYCIN 1.25 GM/WATER(PEG) 250 ML IV SCH (08:00)
[2024-05-22 08:34] LABS: TROPONIN I-HIGH SENSITIVITY 40 ng/L (<51)
[2024-05-22] MEDS: FUROSEMIDE 20 MG/2 ML VIAL IVP SCH (08:40)
[2024-05-22] MEDS: VANCOMYCIN 750 MG/WATER(PEG) 150 ML IV SCH (08:40)
[2024-05-22] MEDS: PANTOPRAZOLE SODIUM 40 MG/VIAL IVP SCH (08:40)
[2024-05-22] MEDS ORDERED: PANTOPRAZOLE SODIUM 40 MG DR TABLET PO SCH (09:00)
[2024-05-22] MEDS: NYSTATIN 15 GM POWDER BOTTLE TP SCH (14:52)
[2024-05-22] MEDS: CASPOFUNGIN ACETATE 70 MG in SODIUM CHLORIDE 0.9% 250 ML IV ONE (15:18)
[2024-05-23] VITALS (20 sets, daily range): BP systolic 125–155; BP diastolic 68–81; PULSE 73–95; RESP 18–31; TEMP 98–98.8; O2SAT 99–100
[2024-05-23 07:37] LABS: ALBUMIN 2.1 g/dL (3.4-5.0); BILIRUBIN,TOTAL 1.7 mg/dL (0.1-1.0); CALCIUM, TOTAL 8.6 mg/dL (8.8-10.5); CREATININE 1.25 mg/dL (0.60-1.30); POTASSIUM 3.6 mmol/L (3.5-5.1); TOTAL PROTEIN, SERUM 8.9 g/dL (6.4-8.2); VANCOMYCIN,RANDOM 26.7 mcg/mL (25.0-50.0)
[2024-05-23 08:58] LABS: BASOPHILS % (AUTO) 0.7 % (0.0-2.0); HEMATOCRIT 25.4 % (36-46); HEMOGLOBIN 8.6 g/dL (12.0-16.0); LYMPHOCYTES # (AUTO) 1.8 K/uL (1.0-4.8); LYMPHOCYTES % (AUTO) 14.5 % (22.0-44.0); MEAN CORPUSCULAR HEMOGLOBIN 36.2 pg (26.0-34.0); MEAN CORPUSCULAR VOLUME 107 fL (80-100); MONOCYTES % (AUTO) 8.4 % (2.0-9.0); NEUTROPHILS # (AUTO) 7.2 K/uL (1.8-7.7); NEUTROPHILS % (AUTO) 59.3 % (40.0-70.0); PLATELET COUNT (AUTO) 58 K/uL (150-450); RED BLOOD CELL COUNT(AUTO) 2.39 MIL/uL (4.00-5.20); RED CELL DISTRIBUTION WIDTH 16.4 % (11.5-14.5); WHITE BLOOD COUNT (AUTO) 12.1 K/uL (4.5-11.0)
[2024-05-23 09:03] LABS: EOSINOPHILS % (AUTO) 17.1 % (1.0-6.0); RBC MORPHOLOGY COMMENT ABNORMAL RBC MORPH
[2024-05-23] MEDS: CASPOFUNGIN ACETATE 50 MG in SODIUM CHLORIDE 0.9% 250 ML IV SCH (15:25)
[2024-05-24] VITALS (28 sets, daily range): BP systolic 143–164; BP diastolic 64–92; PULSE 72–87; RESP 18–32; TEMP 97.7–99.1; O2SAT 98–100
[2024-05-24 06:45] LABS: HEMATOCRIT 27.3 % (36-46); HEMOGLOBIN 9.1 g/dL (12.0-16.0); MEAN CORPUSCULAR HEMOGLOBIN 35.8 pg (26.0-34.0); MEAN CORPUSCULAR HGB CONC 33.4 G/dL (31.0-37.0); MEAN CORPUSCULAR VOLUME 107 fL (80-100); RED BLOOD CELL COUNT(AUTO) 2.54 MIL/uL (4.00-5.20); RED CELL DISTRIBUTION WIDTH 16.4 % (11.5-14.5); WHITE BLOOD COUNT (AUTO) 10.6 K/uL (4.5-11.0)
[2024-05-24 06:58] LABS: CALCIUM, TOTAL 8.5 mg/dL (8.8-10.5); CREATININE 1.23 mg/dL (0.60-1.30); POTASSIUM 3.7 mmol/L (3.5-5.1)
[2024-05-24] MEDS: VANCOMYCIN 1.25 GM/WATER(PEG) 250 ML IV SCH (08:13)
[2024-05-24 09:03] LABS: PLATELET COUNT (AUTO) 3 K/uL (150-450)
[2024-05-24 09:07] LABS: BAND NEUTROPHILS % (MANUAL) 2 % (0-5); EOSINOPHILS % (MANUAL) 23 % (1-6); LYMPHOCYTES % (MANUAL) 9 % (22-44); MONOCYTES % (MANUAL) 10 % (2-9); RBC MORPHOLOGY COMMENT ABNORMAL RBC MORPH; SEGMENTED NEUTROPHILS % 56 % (40-70); TOTAL CELLS COUNTED 100
[2024-05-24] MEDS ORDERED: DEXTROSE 50%-WATER 25 GM/50 ML SYRINGE IVP PRN (09:45)
[2024-05-24] MEDS ORDERED: DEXAMETHASONE 4 MG TABLET PEG SCH (09:45)
[2024-05-24] MEDS: HYDROCODONE/ACETAMINOPHEN 5-325 MG TABLET PO PRN (09:55)
[2024-05-24] MEDS: DEXAMETHASONE SOD PHOS 4 MG/ML 5 ML VIAL PEG SCH (10:27)
[2024-05-24] MEDS: INSULIN LISPRO 100 UNITS/ML SQ PRN (11:49)
[2024-05-24] MEDS ORDERED: SODIUM CHLORIDE 0.9% 250 ML IV ONE ×2 (12:47→14:37)
[2024-05-24 22:45] LABS: BASOPHILS % (AUTO) 0.2 % (0.0-2.0); EOSINOPHILS % (AUTO) 0.1 % (1.0-6.0); HEMATOCRIT 25.7 % (36-46); HEMOGLOBIN 8.6 g/dL (12.0-16.0); LYMPHOCYTES # (AUTO) 0.7 K/uL (1.0-4.8); LYMPHOCYTES % (AUTO) 9.5 % (22.0-44.0); MEAN CORPUSCULAR HEMOGLOBIN 35.6 pg (26.0-34.0); MEAN CORPUSCULAR HGB CONC 33.3 G/dL (31.0-37.0); MEAN CORPUSCULAR VOLUME 107 fL (80-100); MONOCYTES # (AUTO) 0.4 K/uL (0.1-1.0); MONOCYTES % (AUTO) 5.1 % (2.0-9.0); NEUTROPHILS # (AUTO) 5.9 K/uL (1.8-7.7); NEUTROPHILS % (AUTO) 85.1 % (40.0-70.0); PLATELET COUNT (AUTO) 21 K/uL (150-450); RED BLOOD CELL COUNT(AUTO) 2.41 MIL/uL (4.00-5.20); RED CELL DISTRIBUTION WIDTH 15.7 % (11.5-14.5)
[2024-05-24 23:26] LABS: RBC MORPHOLOGY COMMENT ABNORMAL RBC MORPH
[2024-05-25] VITALS (20 sets, daily range): BP systolic 146–153; BP diastolic 71–87; PULSE 72–79; RESP 18–29; TEMP 97.7–99.2; O2SAT 98–100
[2024-05-25 06:43] LABS: BILIRUBIN,TOTAL 1.1 mg/dL (0.1-1.0); CALCIUM, TOTAL 8.6 mg/dL (8.8-10.5); CREATININE 1.22 mg/dL (0.60-1.30); POTASSIUM 3.8 mmol/L (3.5-5.1); TOTAL PROTEIN, SERUM 8.7 g/dL (6.4-8.2)
[2024-05-25 06:48] LABS: BASOPHILS % (AUTO) 0.3 % (0.0-2.0); EOSINOPHILS % (AUTO) 0.5 % (1.0-6.0); HEMATOCRIT 26.6 % (36-46); HEMOGLOBIN 8.8 g/dL (12.0-16.0); LYMPHOCYTES # (AUTO) 1.4 K/uL (1.0-4.8); LYMPHOCYTES % (AUTO) 14.9 % (22.0-44.0); MEAN CORPUSCULAR HGB CONC 33.2 G/dL (31.0-37.0); MEAN CORPUSCULAR VOLUME 109 fL (80-100); MONOCYTES # (AUTO) 1.1 K/uL (0.1-1.0); MONOCYTES % (AUTO) 11.1 % (2.0-9.0); NEUTROPHILS # (AUTO) 6.9 K/uL (1.8-7.7); NEUTROPHILS % (AUTO) 73.2 % (40.0-70.0); PLATELET COUNT (AUTO) 21 K/uL (150-450); RED BLOOD CELL COUNT(AUTO) 2.45 MIL/uL (4.00-5.20); RED CELL DISTRIBUTION WIDTH 15.9 % (11.5-14.5); WHITE BLOOD COUNT (AUTO) 9.5 K/uL (4.5-11.0)
[2024-05-25 09:19] LABS: RBC MORPHOLOGY COMMENT ABNORMAL RBC MORPH
[2024-05-26] VITALS (21 sets, daily range): BP systolic 136–174; BP diastolic 71–93; PULSE 64–91; RESP 18–31; TEMP 97.6–99; O2SAT 97–100
[2024-05-26] MEDS ORDERED: SODIUM CHLORIDE 0.9% 250 ML IV ONE (04:03)
[2024-05-26 07:09] LABS: CALCIUM, TOTAL 8.8 mg/dL (8.8-10.5); CREATININE 1.13 mg/dL (0.60-1.30); POTASSIUM 5.5 mmol/L (3.5-5.1); VANCOMYCIN,RANDOM 24.8 mcg/mL (25.0-50.0)
[2024-05-26 07:12] LABS: BASOPHILS % (AUTO) 0.3 % (0.0-2.0); EOSINOPHILS % (AUTO) 0.4 % (1.0-6.0); HEMATOCRIT 26.2 % (36-46); HEMOGLOBIN 8.6 g/dL (12.0-16.0); LYMPHOCYTES # (AUTO) 1.6 K/uL (1.0-4.8); LYMPHOCYTES % (AUTO) 14.1 % (22.0-44.0); MEAN CORPUSCULAR HEMOGLOBIN 35.6 pg (26.0-34.0); MEAN CORPUSCULAR HGB CONC 32.7 G/dL (31.0-37.0); MEAN CORPUSCULAR VOLUME 109 fL (80-100); MONOCYTES % (AUTO) 8.9 % (2.0-9.0); NEUTROPHILS # (AUTO) 8.7 K/uL (1.8-7.7); NEUTROPHILS % (AUTO) 76.3 % (40.0-70.0); PLATELET COUNT (AUTO) 21 K/uL (150-450); RED BLOOD CELL COUNT(AUTO) 2.41 MIL/uL (4.00-5.20); RED CELL DISTRIBUTION WIDTH 15.9 % (11.5-14.5); WHITE BLOOD COUNT (AUTO) 11.4 K/uL (4.5-11.0)
[2024-05-26] MEDS: CloNIDine HCL 0.1 MG TABLET PO PRN (08:58)
[2024-05-26 09:10] LABS: RBC MORPHOLOGY COMMENT ABNORMAL RBC MORPH
[2024-05-26 23:46] LABS: GLUCOMETER DEV NAME(LOC) 5N.2C; GLUCOSE,POINT OF CARE 232 MG/DL (70-110)
[2024-05-26 23:47] LABS: GLUCOMETER DEV NAME(LOC) 5S.2D; GLUCOSE,POINT OF CARE 365 MG/DL (70-110)
[2024-05-26 23:47] LABS: GLUCOMETER DEV NAME(LOC) 5S.2D; GLUCOSE,POINT OF CARE 270 MG/DL (70-110)
[2024-05-26 23:47] LABS: GLUCOMETER DEV NAME(LOC) 5S.2D; GLUCOSE,POINT OF CARE 290 MG/DL (70-110)
[2024-05-26 23:47] LABS: GLUCOMETER DEV NAME(LOC) 5N.2C; GLUCOSE,POINT OF CARE 291 MG/DL (70-110)
[2024-05-26 23:47] LABS: GLUCOMETER DEV NAME(LOC) 5S.2D; GLUCOSE,POINT OF CARE 355 MG/DL (70-110)
[2024-05-26 23:47] LABS: GLUCOMETER DEV NAME(LOC) 5N.2C; GLUCOSE,POINT OF CARE 276 MG/DL (70-110)
[2024-05-26 23:47] LABS: GLUCOMETER DEV NAME(LOC) 5S.2D; GLUCOSE,POINT OF CARE 304 MG/DL (70-110)
[2024-05-26 23:47] LABS: GLUCOMETER DEV NAME(LOC) 5S.2D; GLUCOSE,POINT OF CARE 320 MG/DL (70-110)
[2024-05-27] VITALS (25 sets, daily range): BP systolic 116–167; BP diastolic 63–95; PULSE 56–110; RESP 18–42; TEMP 98–101.5; O2SAT 10–100
[2024-05-27 01:16] LABS: GLUCOMETER DEV NAME(LOC) 5N.1D; GLUCOSE,POINT OF CARE 267 MG/DL (70-110)
[2024-05-27 07:10] LABS: CALCIUM, TOTAL 8.9 mg/dL (8.8-10.5); CREATININE 1.29 mg/dL (0.60-1.30); POTASSIUM 3.9 mmol/L (3.5-5.1)
[2024-05-27] MEDS: VANCOMYCIN 750 MG/WATER(PEG) 150 ML IV SCH (07:57)
[2024-05-27] MEDS: *CLINICAL-CEFEPIME DOSING CLINICAL ONE (08:16)
[2024-05-27] MEDS: ACETAMINOPHEN 325 MG TABLET PO PRN (08:19)
[2024-05-27 08:51] LABS: BASOPHILS % (AUTO) 0.2 % (0.0-2.0); EOSINOPHILS % (AUTO) 0.4 % (1.0-6.0); HEMATOCRIT 28.7 % (36-46); HEMOGLOBIN 9.5 g/dL (12.0-16.0); LYMPHOCYTES # (AUTO) 1.2 K/uL (1.0-4.8); LYMPHOCYTES % (AUTO) 11.2 % (22.0-44.0); MEAN CORPUSCULAR HEMOGLOBIN 35.4 pg (26.0-34.0); MEAN CORPUSCULAR VOLUME 107 fL (80-100); MONOCYTES # (AUTO) 0.8 K/uL (0.1-1.0); MONOCYTES % (AUTO) 7.6 % (2.0-9.0); NEUTROPHILS # (AUTO) 8.8 K/uL (1.8-7.7); NEUTROPHILS % (AUTO) 80.6 % (40.0-70.0); RED BLOOD CELL COUNT(AUTO) 2.68 MIL/uL (4.00-5.20); RED CELL DISTRIBUTION WIDTH 15.6 % (11.5-14.5); WHITE BLOOD COUNT (AUTO) 10.9 K/uL (4.5-11.0)
[2024-05-27] MEDS: CEFEPIME HCL 2 GM in DEXTROSE 5%-WATER 50 ML IV SCH (09:42)
[2024-05-27 10:18] LABS: PLATELET COUNT (AUTO) 7 K/uL (150-450); RBC MORPHOLOGY COMMENT ABNORMAL RBC MORPH
[2024-05-27] MEDS: ACETAMINOPHEN 650 MG/20.3 ML SOLUTION UDCUP GT PRN (12:59)
[2024-05-27 13:06] LABS: APPEARANCE,URINE CLEAR (CLEAR); BILIRUBIN,URINE NEGATIVE (NEGATIVE); COLOR,URINE YELLOW (YELLOW); GLUCOSE, URINE (UA) >=1000 mg/dL (NEGATIVE); KETONES,URINE NEGATIVE (NEGATIVE); LEUKOCYTE ESTERASE ,URINE SMALL (NEGATIVE); NITRATE,URINE NEGATIVE (NEGATIVE); OCCULT BLOOD,URINE MODERATE (NEGATIVE); PH,URINE 5.5 (5.0-8.0); PROTEIN,URINE 100-200,SEE CONFIRM mg/dL (NEGATIVE); SPECIFIC GRAVITIY, URINE 1.019 (1.003-1.030); UROBILINOGEN,URINE <=1.0 mg/dL (<=1.0)
[2024-05-27] MEDS ORDERED: SODIUM CHLORIDE 0.9% 500 ML IV ONE (13:06)
[2024-05-27 13:16] LABS: BACTERIA,URINE Moderate /HPF (None Seen); SULFOSALICYLIC ACID,URINE 2+ (Negative)
[2024-05-27 13:17] LABS: SQUAMOUS EPITHELIAL CELL,UR Moderate /LPF (None Seen)
[2024-05-27] MEDS: INSULIN LISPRO 100 UNITS/ML SQ PRN (18:23)
[2024-05-27 19:04] LABS: ABG BASE EXCESS -5.8 mmol/L (-2.0-3.0); ABG CARBOXYHEMOGLOBIN 0.3 % (0.5-1.5); ABG HCO3 20.3 mmol/L (21.0-28.0); ABG METHEMOGLOBIN 0.2 % (0.0-1.5); ABG OXYGEN CONTENT 14.1 mL/dL (15.0-23.0); ABG OXYGEN SATURATION 99.7 % (94.0-98.0); ABG OXYHEMOGLOBIN 99.2 % (94.0-98.0); ABG PCO2 32 mmHg (32.0-45.0); ABG PH 7.393 (7.350-7.450); ABG TOTAL HEMOGLOBIN 9.4 G/dL (12.0-16.0); SOURCE, BLOOD GAS ARTERIAL; TEMPERATURE, FAHRENHEIT, BG 99.5 FAHREN (96.0-98.6)
[2024-05-27 19:15] LABS: ALLEN TEST, BLOOD GAS Positive; PO2, ARTERIAL BG 360.5 mmHg (83.0-108.0); SITE, BLOOD GAS LFT RADIAL
[2024-05-27 19:16] LABS: O2 DEVICE,BLOOD GAS VENTILATOR (ROOM AIR); PEEP,BG 5 cm H2O; SPONTANEOUS VT, BG 446 ml; VT, ABG 400 ml
[2024-05-28] VITALS (23 sets, daily range): BP systolic 119–163; BP diastolic 65–80; PULSE 75–102; RESP 18–37; TEMP 97.3–99.7; O2SAT 95–99
[2024-05-28 04:26] LABS: GLUCOMETER DEV NAME(LOC) 5N.2C; GLUCOSE,POINT OF CARE 370 MG/DL (70-110)
[2024-05-28 04:26] LABS: GLUCOMETER DEV NAME(LOC) 5N.2C; GLUCOSE,POINT OF CARE 295 MG/DL (70-110)
[2024-05-28 04:26] LABS: GLUCOMETER DEV NAME(LOC) 5N.2C; GLUCOSE,POINT OF CARE 443 MG/DL (70-110)
[2024-05-28 04:26] LABS: GLUCOMETER DEV NAME(LOC) 5N.2C; GLUCOSE,POINT OF CARE 319 MG/DL (70-110)
[2024-05-28 04:26] LABS: GLUCOMETER DEV NAME(LOC) 5N.2C; GLUCOSE,POINT OF CARE 370 MG/DL (70-110)
[2024-05-28 07:51] LABS: BILIRUBIN,TOTAL 1.2 mg/dL (0.1-1.0); CREATININE 1.38 mg/dL (0.60-1.30); POTASSIUM 3.8 mmol/L (3.5-5.1); TOTAL PROTEIN, SERUM 8.4 g/dL (6.4-8.2)
[2024-05-28 07:58] LABS: CALCIUM, TOTAL 8.6 mg/dL (8.8-10.5)
[2024-05-28 09:26] LABS: GLUCOMETER DEV NAME(LOC) 5S.1D; GLUCOSE,POINT OF CARE 292 MG/DL (70-110)
[2024-05-28 09:40] LABS: BASOPHILS % (AUTO) 0.2 % (0.0-2.0); EOSINOPHILS % (AUTO) 0.7 % (1.0-6.0); HEMATOCRIT 26.7 % (36-46); HEMOGLOBIN 8.6 g/dL (12.0-16.0); LYMPHOCYTES # (AUTO) 1.6 K/uL (1.0-4.8); LYMPHOCYTES % (AUTO) 12.5 % (22.0-44.0); MEAN CORPUSCULAR HEMOGLOBIN 34.7 pg (26.0-34.0); MEAN CORPUSCULAR HGB CONC 32.1 G/dL (31.0-37.0); MEAN CORPUSCULAR VOLUME 108 fL (80-100); MONOCYTES # (AUTO) 1.3 K/uL (0.1-1.0); MONOCYTES % (AUTO) 9.8 % (2.0-9.0); NEUTROPHILS # (AUTO) 10.1 K/uL (1.8-7.7); NEUTROPHILS % (AUTO) 76.8 % (40.0-70.0); RED BLOOD CELL COUNT(AUTO) 2.47 MIL/uL (4.00-5.20); RED CELL DISTRIBUTION WIDTH 15.5 % (11.5-14.5); WHITE BLOOD COUNT (AUTO) 13.1 K/uL (4.5-11.0)
[2024-05-28 09:44] LABS: PLATELET COUNT (AUTO) 6 K/uL (150-450)
[2024-05-28 11:39] LABS: RBC MORPHOLOGY COMMENT ABNORMAL RBC MORPH
[2024-05-28] MEDS ORDERED: SODIUM CHLORIDE 0.9% 500 ML IV ONE (13:20)
[2024-05-28] MEDS: *CLINICAL-MEROPENEM DOSING CLINICAL ONE (13:42)
[2024-05-28] MEDS: MEROPENEM 1 GM in SODIUM CHLORIDE 0.9% 100 ML IV SCH (14:22)
[2024-05-28 22:16] LABS: GLUCOMETER DEV NAME(LOC) 5S.1D; GLUCOSE,POINT OF CARE 253 MG/DL (70-110)
[2024-05-29] VITALS (17 sets, daily range): BP systolic 122–156; BP diastolic 61–86; PULSE 58–98; RESP 18–40; TEMP 98–100.1; O2SAT 96–99
[2024-05-29 06:57] LABS: BASOPHILS % (AUTO) 0.4 % (0.0-2.0); EOSINOPHILS % (AUTO) 8.8 % (1.0-6.0); HEMATOCRIT 25.9 % (36-46); HEMOGLOBIN 8.6 g/dL (12.0-16.0); LYMPHOCYTES # (AUTO) 1.5 K/uL (1.0-4.8); LYMPHOCYTES % (AUTO) 12.5 % (22.0-44.0); MEAN CORPUSCULAR HEMOGLOBIN 36.2 pg (26.0-34.0); MEAN CORPUSCULAR HGB CONC 33.3 G/dL (31.0-37.0); MEAN CORPUSCULAR VOLUME 109 fL (80-100); MONOCYTES % (AUTO) 8.4 % (2.0-9.0); NEUTROPHILS # (AUTO) 8.3 K/uL (1.8-7.7); NEUTROPHILS % (AUTO) 69.9 % (40.0-70.0); RED BLOOD CELL COUNT(AUTO) 2.38 MIL/uL (4.00-5.20); RED CELL DISTRIBUTION WIDTH 15.3 % (11.5-14.5); WHITE BLOOD COUNT (AUTO) 11.9 K/uL (4.5-11.0)
[2024-05-29 08:15] LABS: CREATININE 1.4 mg/dL (0.60-1.30); POTASSIUM 3.8 mmol/L (3.5-5.1)
[2024-05-29 08:23] LABS: CALCIUM, TOTAL 8.6 mg/dL (8.8-10.5)
[2024-05-29] MEDS: DOCUSATE SODIUM 100 MG/10 ML LIQUID UDCUP GT SCH (09:05)
[2024-05-29 09:17] LABS: PLATELET COUNT (AUTO) 11 K/uL (150-450); RBC MORPHOLOGY COMMENT ABNORMAL RBC MORPH
[2024-05-30] VITALS (18 sets, daily range): BP systolic 126–136; BP diastolic 63–88; PULSE 71–96; RESP 17–33; TEMP 97.7–98.7; O2SAT 95–100
[2024-05-30 07:13] LABS: HEMATOCRIT 26.7 % (36-46); HEMOGLOBIN 8.9 g/dL (12.0-16.0); MEAN CORPUSCULAR HEMOGLOBIN 36.4 pg (26.0-34.0); MEAN CORPUSCULAR HGB CONC 33.4 G/dL (31.0-37.0); MEAN CORPUSCULAR VOLUME 109 fL (80-100); RED BLOOD CELL COUNT(AUTO) 2.45 MIL/uL (4.00-5.20); RED CELL DISTRIBUTION WIDTH 15.3 % (11.5-14.5); WHITE BLOOD COUNT (AUTO) 7.9 K/uL (4.5-11.0)
[2024-05-30 07:31] LABS: POTASSIUM 3.7 mmol/L (3.5-5.1)
[2024-05-30 07:37] LABS: CALCIUM, TOTAL 8.7 mg/dL (8.8-10.5); CREATININE 1.44 mg/dL (0.60-1.30); VANCOMYCIN,RANDOM 19.7 mcg/mL (25.0-50.0)
[2024-05-30 08:49] LABS: D-DIMER 3.19 mg/L FEU (0.00-0.50)
[2024-05-30 08:57] LABS: PLATELET COUNT (AUTO) 4 K/uL (150-450)
[2024-05-30 08:58] LABS: RBC MORPHOLOGY COMMENT ABNORMAL RBC MORPH
[2024-05-30 09:07] LABS: BAND NEUTROPHILS % (MANUAL) 0 % (0-5)
[2024-05-30 09:12] LABS: EOSINOPHILS % (MANUAL) 18 % (1-6); LYMPHOCYTES % (MANUAL) 20 % (22-44); MONOCYTES % (MANUAL) 6 % (2-9); SEGMENTED NEUTROPHILS % 56 % (40-70); TOTAL CELLS COUNTED 100
[2024-05-30 12:16] LABS: GLUCOMETER DEV NAME(LOC) 5S.2D; GLUCOSE,POINT OF CARE 287 MG/DL (70-110)
[2024-05-30 12:16] LABS: GLUCOMETER DEV NAME(LOC) 5S.2D; GLUCOSE,POINT OF CARE 328 MG/DL (70-110)
[2024-05-30 12:16] LABS: GLUCOMETER DEV NAME(LOC) 5S.2D; GLUCOSE,POINT OF CARE 316 MG/DL (70-110)
[2024-05-30 12:16] LABS: GLUCOMETER DEV NAME(LOC) 5S.2D; GLUCOSE,POINT OF CARE 288 MG/DL (70-110)
[2024-05-30 12:20] LABS: GLUCOMETER DEV NAME(LOC) 5S.2D; GLUCOSE,POINT OF CARE 266 MG/DL (70-110)
[2024-05-30 12:20] LABS: GLUCOMETER DEV NAME(LOC) 5S.2D; GLUCOSE,POINT OF CARE 258 MG/DL (70-110)
[2024-05-30 12:20] LABS: GLUCOMETER DEV NAME(LOC) 5S.2D; GLUCOSE,POINT OF CARE 295 MG/DL (70-110)
[2024-05-31] VITALS (18 sets, daily range): BP systolic 109–147; BP diastolic 54–83; PULSE 79–96; RESP 17–36; TEMP 98–99.9; O2SAT 98–100
[2024-05-31] MEDS ORDERED: SODIUM CHLORIDE 0.9% 250 ML IV ONE (02:13)
[2024-05-31 06:28] LABS: BASOPHILS % (AUTO) 0.8 % (0.0-2.0); HEMATOCRIT 26.8 % (36-46); HEMOGLOBIN 8.7 g/dL (12.0-16.0); LYMPHOCYTES # (AUTO) 1.8 K/uL (1.0-4.8); LYMPHOCYTES % (AUTO) 18.5 % (22.0-44.0); MEAN CORPUSCULAR HEMOGLOBIN 35.3 pg (26.0-34.0); MEAN CORPUSCULAR HGB CONC 32.6 G/dL (31.0-37.0); MEAN CORPUSCULAR VOLUME 109 fL (80-100); MONOCYTES # (AUTO) 0.9 K/uL (0.1-1.0); MONOCYTES % (AUTO) 9.8 % (2.0-9.0); NEUTROPHILS # (AUTO) 5.2 K/uL (1.8-7.7); NEUTROPHILS % (AUTO) 55.1 % (40.0-70.0); RED BLOOD CELL COUNT(AUTO) 2.47 MIL/uL (4.00-5.20); RED CELL DISTRIBUTION WIDTH 15.1 % (11.5-14.5); WHITE BLOOD COUNT (AUTO) 9.5 K/uL (4.5-11.0)
[2024-05-31 06:45] LABS: BILIRUBIN,TOTAL 0.9 mg/dL (0.1-1.0); CALCIUM, TOTAL 8.6 mg/dL (8.8-10.5); CREATININE 1.4 mg/dL (0.60-1.30); POTASSIUM 3.7 mmol/L (3.5-5.1); TOTAL PROTEIN, SERUM 7.4 g/dL (6.4-8.2)
[2024-05-31 06:46] LABS: PROTHROMBIN TIME 11.1 SEC (9.4-11.6)
[2024-05-31 09:53] LABS: EOSINOPHILS % (AUTO) 15.8 % (1.0-6.0); PLATELET COUNT (AUTO) 13 K/uL (150-450)
[2024-05-31 09:54] LABS: RBC MORPHOLOGY COMMENT ABNORMAL RBC MORPH
[2024-05-31] MEDS: DEXTROSE 5%-WATER 1,000 ML IV ONE (12:00)
[2024-05-31] MEDS: CIPROFLOXACIN 400 MG/D5% WATER 200 ML IV SCH (14:19)
[2024-06-01] VITALS (29 sets, daily range): BP systolic 120–144; BP diastolic 67–97; PULSE 79–142; RESP 17–38; TEMP 97.4–100.9; O2SAT 97–100
[2024-06-01 06:40] LABS: BASOPHILS % (AUTO) 0.6 % (0.0-2.0); EOSINOPHILS % (AUTO) 11.9 % (1.0-6.0); HEMATOCRIT 26.7 % (36-46); HEMOGLOBIN 8.9 g/dL (12.0-16.0); LYMPHOCYTES # (AUTO) 1.5 K/uL (1.0-4.8); MEAN CORPUSCULAR HEMOGLOBIN 36.4 pg (26.0-34.0); MEAN CORPUSCULAR HGB CONC 33.2 G/dL (31.0-37.0); MEAN CORPUSCULAR VOLUME 110 fL (80-100); MONOCYTES # (AUTO) 0.8 K/uL (0.1-1.0); MONOCYTES % (AUTO) 9.1 % (2.0-9.0); NEUTROPHILS # (AUTO) 5.2 K/uL (1.8-7.7); NEUTROPHILS % (AUTO) 60.4 % (40.0-70.0); RED BLOOD CELL COUNT(AUTO) 2.43 MIL/uL (4.00-5.20); RED CELL DISTRIBUTION WIDTH 15.8 % (11.5-14.5); WHITE BLOOD COUNT (AUTO) 8.6 K/uL (4.5-11.0)
[2024-06-01 07:04] LABS: PLATELET COUNT (AUTO) 7 K/uL (150-450)
[2024-06-01 07:13] LABS: BILIRUBIN,TOTAL 0.8 mg/dL (0.1-1.0); CALCIUM, TOTAL 8.9 mg/dL (8.8-10.5); CREATININE 1.43 mg/dL (0.60-1.30); POTASSIUM 3.8 mmol/L (3.5-5.1); TOTAL PROTEIN, SERUM 7.4 g/dL (6.4-8.2)
[2024-06-01 07:32] LABS: RBC MORPHOLOGY COMMENT ABNORMAL RBC MORPH
[2024-06-01] MEDS ORDERED: SODIUM CHLORIDE 0.9% 500 ML IV ONE (10:39)
[2024-06-01] MEDS ORDERED: SODIUM CHLORIDE 0.9% 250 ML IV ONE (13:27)
[2024-06-01] MEDS: DEXTROSE 5%-WATER 1,000 ML IV ONE (15:19)
[2024-06-01] MEDS: DILTIAZEM HCL 5 MG/ML 5 ML VIAL IVP ONE (17:10)
[2024-06-01] MEDS: AMIODARONE HCL 150 MG in DEXTROSE 5%-WATER 97 ML IV ONE (19:56)
[2024-06-01] MEDS: AMIODARONE HCL 360 MG in DEXTROSE 5%-WATER 242.8 ML IV ONE (20:13)
[2024-06-01] MEDS: INSULIN GLARGINE,HUM.REC.ANLOG 100 UNITS/ML SQ SCH (20:29)
[2024-06-02] VITALS (20 sets, daily range): BP systolic 117–139; BP diastolic 55–92; PULSE 74–96; RESP 20–35; TEMP 97.8–98.8; O2SAT 98–100
[2024-06-02] MEDS: AMIODARONE HCL 540 MG in DEXTROSE 5%-WATER 239.2 ML IV ONE (02:31)
[2024-06-02 07:17] LABS: BASOPHILS % (AUTO) 0.7 % (0.0-2.0); EOSINOPHILS % (AUTO) 11.2 % (1.0-6.0); HEMOGLOBIN 8.3 g/dL (12.0-16.0); LYMPHOCYTES # (AUTO) 1.7 K/uL (1.0-4.8); LYMPHOCYTES % (AUTO) 18.4 % (22.0-44.0); MEAN CORPUSCULAR HEMOGLOBIN 36.5 pg (26.0-34.0); MEAN CORPUSCULAR HGB CONC 33.2 G/dL (31.0-37.0); MEAN CORPUSCULAR VOLUME 110 fL (80-100); MONOCYTES # (AUTO) 0.8 K/uL (0.1-1.0); NEUTROPHILS # (AUTO) 5.6 K/uL (1.8-7.7); NEUTROPHILS % (AUTO) 60.7 % (40.0-70.0); RED BLOOD CELL COUNT(AUTO) 2.28 MIL/uL (4.00-5.20); RED CELL DISTRIBUTION WIDTH 15.3 % (11.5-14.5); WHITE BLOOD COUNT (AUTO) 9.2 K/uL (4.5-11.0)
[2024-06-02 07:25] LABS: PLATELET COUNT (AUTO) 18 K/uL (150-450); RBC MORPHOLOGY COMMENT ABNORMAL RBC MORPH
[2024-06-02 07:37] LABS: ALBUMIN 1.9 g/dL (3.4-5.0); BILIRUBIN,TOTAL 0.7 mg/dL (0.1-1.0); CALCIUM, TOTAL 8.4 mg/dL (8.8-10.5); CREATININE 1.51 mg/dL (0.60-1.30); POTASSIUM 3.7 mmol/L (3.5-5.1); TOTAL PROTEIN, SERUM 6.9 g/dL (6.4-8.2)
[2024-06-02] MEDS: AMIODARONE HCL 200 MG TABLET NG SCH (09:12)
[2024-06-02] MEDS: INSULIN GLARGINE,HUM.REC.ANLOG 100 UNITS/ML SQ SCH (09:13)
[2024-06-02] MEDS ORDERED: SODIUM CHLORIDE 0.9% 250 ML IV ONE (09:37)
[2024-06-02 13:06] LABS: C.DIFF GDH ANTIGEN, Stool Positive (Negative)
[2024-06-02 13:08] LABS: C.DIFF TOXINS A&B, Stool Negative (Negative)
[2024-06-02] MEDS: VANCOMYCIN HCL 125 MG/2.5 ML SOLUTION ORAL.SYG GT SCH (14:20)
[2024-06-02] MEDS ORDERED: AMIODARONE HCL 750 MG in DEXTROSE 5%-WATER 485 ML IV SCH (18:45)
[2024-06-02 20:17] LABS: GLUCOMETER DEV NAME(LOC) 5N.1D; GLUCOSE,POINT OF CARE 288 MG/DL (70-110)
[2024-06-02 20:17] LABS: GLUCOMETER DEV NAME(LOC) 5N.1D; GLUCOSE,POINT OF CARE 273 MG/DL (70-110)
[2024-06-02 20:17] LABS: GLUCOMETER DEV NAME(LOC) 5N.1D; GLUCOSE,POINT OF CARE 353 MG/DL (70-110)
[2024-06-02 20:17] LABS: GLUCOMETER DEV NAME(LOC) 5N.1D; GLUCOSE,POINT OF CARE 211 MG/DL (70-110)
[2024-06-02 20:17] LABS: GLUCOMETER DEV NAME(LOC) 5N.1D; GLUCOSE,POINT OF CARE 209 MG/DL (70-110)
[2024-06-02 20:21] LABS: GLUCOMETER DEV NAME(LOC) 5N.1D; GLUCOSE,POINT OF CARE 310 MG/DL (70-110)
[2024-06-02 20:21] LABS: GLUCOMETER DEV NAME(LOC) 5N.1D; GLUCOSE,POINT OF CARE 333 MG/DL (70-110)
[2024-06-02 20:21] LABS: GLUCOMETER DEV NAME(LOC) 5S.1D; GLUCOSE,POINT OF CARE 360 MG/DL (70-110)
[2024-06-02 20:21] LABS: GLUCOMETER DEV NAME(LOC) 5S.1D; GLUCOSE,POINT OF CARE 311 MG/DL (70-110)
[2024-06-02 20:21] LABS: GLUCOMETER DEV NAME(LOC) 5S.1D; GLUCOSE,POINT OF CARE 335 MG/DL (70-110)
[2024-06-02 20:21] LABS: GLUCOMETER DEV NAME(LOC) 5S.1D; GLUCOSE,POINT OF CARE 400 MG/DL (70-110)
[2024-06-02 20:21] LABS: GLUCOMETER DEV NAME(LOC) 5N.1D; GLUCOSE,POINT OF CARE 318 MG/DL (70-110)
[2024-06-02 20:41] LABS: GLUCOMETER DEV NAME(LOC) 5S.2D; GLUCOSE,POINT OF CARE 286 MG/DL (70-110)
[2024-06-02 20:41] LABS: GLUCOMETER DEV NAME(LOC) 5S.2D; GLUCOSE,POINT OF CARE 331 MG/DL (70-110)
[2024-06-03] VITALS (14 sets, daily range): BP systolic 108–150; BP diastolic 55–81; PULSE 71–86; RESP 20–28; TEMP 97.5–98.1; O2SAT 97–100
[2024-06-03 01:41] LABS: GLUCOMETER DEV NAME(LOC) 5N.2C; GLUCOSE,POINT OF CARE 262 MG/DL (70-110)
[2024-06-03 05:55] LABS: BASOPHILS % (AUTO) 0.6 % (0.0-2.0); EOSINOPHILS % (AUTO) 10.2 % (1.0-6.0); HEMATOCRIT 23.9 % (36-46); HEMOGLOBIN 7.9 g/dL (12.0-16.0); LYMPHOCYTES # (AUTO) 1.8 K/uL (1.0-4.8); LYMPHOCYTES % (AUTO) 18.6 % (22.0-44.0); MEAN CORPUSCULAR HEMOGLOBIN 35.7 pg (26.0-34.0); MEAN CORPUSCULAR HGB CONC 33.1 G/dL (31.0-37.0); MEAN CORPUSCULAR VOLUME 108 fL (80-100); MONOCYTES # (AUTO) 0.8 K/uL (0.1-1.0); MONOCYTES % (AUTO) 7.9 % (2.0-9.0); NEUTROPHILS # (AUTO) 6.1 K/uL (1.8-7.7); NEUTROPHILS % (AUTO) 62.7 % (40.0-70.0); PLATELET COUNT (AUTO) 29 K/uL (150-450); RED BLOOD CELL COUNT(AUTO) 2.22 MIL/uL (4.00-5.20); RED CELL DISTRIBUTION WIDTH 14.8 % (11.5-14.5); WHITE BLOOD COUNT (AUTO) 9.7 K/uL (4.5-11.0)
[2024-06-03 06:11] LABS: BILIRUBIN,TOTAL 0.7 mg/dL (0.1-1.0); CALCIUM, TOTAL 8.7 mg/dL (8.8-10.5); CREATININE 1.47 mg/dL (0.60-1.30); POTASSIUM 3.8 mmol/L (3.5-5.1); TOTAL PROTEIN, SERUM 7.3 g/dL (6.4-8.2)
[2024-06-03 07:16] LABS: RBC MORPHOLOGY COMMENT ABNORMAL RBC MORPH
[2024-06-03] MEDS: DEXTROSE 5%-WATER 1,000 ML IV ONE (09:48)
[2024-06-04] VITALS (17 sets, daily range): BP systolic 122–145; BP diastolic 67–76; PULSE 68–89; RESP 20–28; TEMP 97.6–98.2; O2SAT 97–100
[2024-06-04 05:46] LABS: GLUCOMETER DEV NAME(LOC) 5N.1D; GLUCOSE,POINT OF CARE 172 MG/DL (70-110)
[2024-06-04 05:46] LABS: GLUCOMETER DEV NAME(LOC) 5N.2C; GLUCOSE,POINT OF CARE 313 MG/DL (70-110)
[2024-06-04 05:46] LABS: GLUCOMETER DEV NAME(LOC) 5N.2C; GLUCOSE,POINT OF CARE 271 MG/DL (70-110)
[2024-06-04 05:46] LABS: GLUCOMETER DEV NAME(LOC) 5N.1D; GLUCOSE,POINT OF CARE 236 MG/DL (70-110)
[2024-06-04 05:46] LABS: GLUCOMETER DEV NAME(LOC) 5N.2C; GLUCOSE,POINT OF CARE 306 MG/DL (70-110)
[2024-06-04 05:46] LABS: GLUCOMETER DEV NAME(LOC) 5N.2C; GLUCOSE,POINT OF CARE 262 MG/DL (70-110)
[2024-06-04 06:41] LABS: BASOPHILS % (AUTO) 0.7 % (0.0-2.0); EOSINOPHILS % (AUTO) 8.7 % (1.0-6.0); HEMATOCRIT 23.3 % (36-46); HEMOGLOBIN 7.9 g/dL (12.0-16.0); LYMPHOCYTES # (AUTO) 1.6 K/uL (1.0-4.8); MEAN CORPUSCULAR HEMOGLOBIN 36.4 pg (26.0-34.0); MEAN CORPUSCULAR HGB CONC 33.9 G/dL (31.0-37.0); MEAN CORPUSCULAR VOLUME 107 fL (80-100); MONOCYTES # (AUTO) 0.7 K/uL (0.1-1.0); MONOCYTES % (AUTO) 8.4 % (2.0-9.0); NEUTROPHILS # (AUTO) 4.8 K/uL (1.8-7.7); NEUTROPHILS % (AUTO) 61.2 % (40.0-70.0); PLATELET COUNT (AUTO) 40 K/uL (150-450); RED BLOOD CELL COUNT(AUTO) 2.17 MIL/uL (4.00-5.20); RED CELL DISTRIBUTION WIDTH 14.9 % (11.5-14.5); WHITE BLOOD COUNT (AUTO) 7.8 K/uL (4.5-11.0)
[2024-06-04 06:47] LABS: ALBUMIN 1.9 g/dL (3.4-5.0); BILIRUBIN,TOTAL 0.6 mg/dL (0.1-1.0); CALCIUM, TOTAL 8.5 mg/dL (8.8-10.5); CREATININE 1.34 mg/dL (0.60-1.30); POTASSIUM 3.5 mmol/L (3.5-5.1)
[2024-06-04 07:24] LABS: RBC MORPHOLOGY COMMENT ABNORMAL RBC MORPH
[2024-06-04 11:06] LABS: GLUCOMETER DEV NAME(LOC) 5N.1D; GLUCOSE,POINT OF CARE 261 MG/DL (70-110)
[2024-06-04 13:30] LABS: GLUCOMETER DEV NAME(LOC) 5N.1D; GLUCOSE,POINT OF CARE 258 MG/DL (70-110)
[2024-06-04 16:36] LABS: GLUCOMETER DEV NAME(LOC) 5S.1D; GLUCOSE,POINT OF CARE 242 MG/DL (70-110)
[2024-06-04] MEDS ORDERED: SODIUM CHLORIDE 0.9% 250 ML IV ONE (16:49)
== END 2024-06-04 19:00 | DRG 870 ==
LOC: EMS 20:24 → EDH 05-21 06:38 → UNDOADMIN 05-21 06:49 → EDH 05-21 06:49 → 5S 05-21 09:16 → EDH 05-21 09:16
PROVIDERS: ADMIT Internal Medicine; ATTEND Internal Medicine
PROC: 30233L1 Transfusion of Nonautologous Fresh Plasma into Peripheral Vein, Percutaneous Approach (ICD-10-PCS; principal; 2024-05-21)
PROC: 30233R1 Transfusion of Nonautologous Platelets into Peripheral Vein, Percutaneous Approach (ICD-10-PCS; 2024-05-21)
PROC: 5A1955Z Respiratory Ventilation, Greater than 96 Consecutive Hours (ICD-10-PCS; 2024-05-21)
PROC: 05HD33Z Insertion of Infusion Device into Right Cephalic Vein, Percutaneous Approach (ICD-10-PCS; 2024-05-26)
DX: A41.1 Sepsis due to other specified staphylococcus (principal); J69.0 Pneumonitis due to inhalation of food and vomit; J96.20 Acute and chronic respiratory failure, unspecified whether with hypoxia or hypercapnia; I50.33 Acute on chronic diastolic (congestive) heart failure; J15.1 Pneumonia due to Pseudomonas; R53.2 Functional quadriplegia; Z99.11 Dependence on respirator [ventilator] status; I69.354 Hemiplegia and hemiparesis following cerebral infarction affecting left non-dominant side; N17.9 Acute kidney failure, unspecified; N39.0 Urinary tract infection, site not specified; A04.72 Enterocolitis due to Clostridium difficile, not specified as recurrent; E87.0 Hyperosmolality and hypernatremia; I13.0 Hypertensive heart and chronic kidney disease with heart failure and stage 1 through stage 4 chronic kidney disease, or unspecified chronic kidney disease; I48.92 Unspecified atrial flutter; J44.0 Chronic obstructive pulmonary disease with (acute) lower respiratory infection; E44.0 Moderate protein-calorie malnutrition; Z20.822 Contact with and (suspected) exposure to COVID-19; D69.6 Thrombocytopenia, unspecified; E03.9 Hypothyroidism, unspecified; E78.00 Pure hypercholesterolemia, unspecified; I34.0 Nonrheumatic mitral (valve) insufficiency; K80.20 Calculus of gallbladder without cholecystitis without obstruction; L30.4 Erythema intertrigo; F01.50 Vascular dementia, unspecified severity, without behavioral disturbance, psychotic disturbance, mood disturbance, and anxiety; D63.8 Anemia in other chronic diseases classified elsewhere; E11.22 Type 2 diabetes mellitus with diabetic chronic kidney disease; I25.2 Old myocardial infarction; E11.649 Type 2 diabetes mellitus with hypoglycemia without coma; I48.0 Paroxysmal atrial fibrillation; L89.159 Pressure ulcer of sacral region, unspecified stage; S31.829A Unspecified open wound of left buttock, initial encounter; S31.819A Unspecified open wound of right buttock, initial encounter; N18.30 Chronic kidney disease, stage 3 unspecified; Z66 Do not resuscitate; E66.9 Obesity, unspecified; Z79.4 Long term (current) use of insulin; Z87.440 Personal history of urinary (tract) infections; Z93.0 Tracheostomy status; Z93.1 Gastrostomy status; Z79.899 Other long term (current) drug therapy; X58.XXXA Exposure to other specified factors, initial encounter; Y93.89 Activity, other specified; Y92.89 Other specified places as the place of occurrence of the external cause; Y99.8 Other external cause status; Z68.31 Body mass index [BMI] 31.0-31.9, adult
CPT/HCPCS: 36245; 36569; 36600; 70450; 71045; 71250; 74176; 76705; 76937; 80048; 80053; 80076; 80202; 81001; 81002; 82140; 82805; 82962; 83036; 83605; 83880; 84145; 84484; 85025; 85049; 85379; 85384; 85610; 85730; 86850; 86900; 86901; 86927; 87040; 87070; 87077; 87081; 87086; 87186; 87205; 87324; 87449; 87481; 87804; 93005; 94002; 94003; 94640; 99291; J0282; J0456; J0637; J0692; J0696; J0744; J1100; J1815; J1940; J1956; J2185; J2470; J3490; J7030; J7040; J7050; J7060; J8540; P9017; P9035; 36415-L1; 36415-TC

== ENCOUNTER 2025-05-17 11:14 | Inpatient (IN) | payer MEDICARE, OTHER ==
[~2025-05-17] VITALS: Ht 170.2 cm; Wt 77.0 kg
[2025-05-17] VITALS (8 sets, daily range): BP systolic 143–158; BP diastolic 81–90; PULSE 77–95; RESP 18–26; TEMP 97.3–97.5; O2SAT 97–100
[~2025-05-17 11:14] MED LIST changes: -PANT40VI14 IVP; +PANT40VI15 IVP
[2025-05-17 12:04] LABS: CALCIUM, TOTAL 9.5 mg/dL (8.8-10.5); CREATININE 3.29 mg/dL (0.60-1.30); GLOMERULAR FILTR. RATE CALC 14 mL/min (>60); GLUCOSE,RANDOM 99 mg/dL (70-110); SODIUM SERUM 135 mmol/L (136-145); UREA NITROGEN, BLOOD 87 mg/dL (7-18)
[2025-05-17 12:12] LABS: PLATELET COUNT (AUTO) 272 K/uL (150-450); RED BLOOD CELL COUNT(AUTO) 4.14 MIL/uL (4.00-5.20); RED CELL DISTRIBUTION WIDTH 18.6 % (11.5-14.5); WHITE BLOOD COUNT (AUTO) 7.2 K/uL (4.5-11.0)
[2025-05-17 12:16] LABS: TROPONIN I-HIGH SENSITIVITY 20 ng/L (<51)
[2025-05-17 12:25] LABS: ASPARTATE AMINOTRANSFERASE 26.0 U/L (15-37); TOTAL PROTEIN, SERUM 8.4 g/dL (6.4-8.2)
[2025-05-17] MEDS ORDERED: AMIO200T73 GT (12:54)
[2025-05-17] MEDS ORDERED: SODI100067 GT (12:54)
[2025-05-17] MEDS ORDERED: FERR220E10 GT (12:54)
[2025-05-17] MEDS ORDERED: CLON0.1T2 GT (12:54)
[2025-05-17] MEDS ORDERED: INSLAN SQ (12:54)
[2025-05-17] MEDS ORDERED: ASCO500 GT (12:54)
[2025-05-17] MEDS ORDERED: [UNRECOGNIZED DRUG - CODE] SQ (12:54)
[2025-05-17] MEDS ORDERED: TRAZ-252 GT (12:54)
[2025-05-17] MEDS ORDERED: ESCI-8 GT (12:54)
[2025-05-17] MEDS ORDERED: ONDANSETRON HCL 4 MG/2 ML VIAL IVP PRN (15:45)
[2025-05-17] MEDS ORDERED: ZOLPIDEM TARTRATE 5 MG TABLET PO PRN (15:45)
[2025-05-17] MEDS ORDERED: BISACODYL 10 MG RECTAL RECTAL SUPPOSITORY PR PRN (15:45)
[2025-05-17] MEDS ORDERED: MAGNESIUM HYDROXIDE SUSPENSION 30 ML UDCUP PO PRN (15:45)
[2025-05-17] MEDS ORDERED: HYDROCODONE/ACETAMINOPHEN 5-325 MG TABLET PO PRN (15:45)
[2025-05-17] MEDS ORDERED: ACETAMINOPHEN 325 MG TABLET PO PRN (15:45)
[2025-05-17] MEDS: HEPARIN SODIUM,PORCINE 5,000 UNITS/ML VIAL SQ SCH (16:22)
[2025-05-17] MEDS: ATORVASTATIN CALCIUM 10 MG TABLET PO SCH (20:24)
[2025-05-17] MEDS: AMIODARONE HCL 200 MG TABLET GT SCH (20:25)
[2025-05-17] MEDS: DOCUSATE SODIUM 100 MG CAPSULE PO SCH (20:25)
[2025-05-17] MEDS: INSULIN GLARGINE,HUM.REC.ANLOG 100 UNITS/ML SQ SCH (21:00)
[2025-05-17 23:36] LABS: GLUCOMETER DEV NAME(LOC) 5N.2C; GLUCOSE,POINT OF CARE 121 MG/DL (70-110)
[2025-05-18] VITALS (14 sets, daily range): BP systolic 109–151; BP diastolic 50–98; PULSE 78–99; RESP 18–20; TEMP 97.8–99; O2SAT 98–100
[2025-05-18 06:01] LABS: GLUCOMETER DEV NAME(LOC) 5S.2E; GLUCOSE,POINT OF CARE 88 MG/DL (70-110)
[2025-05-18] MEDS: LEVOTHYROXINE SODIUM 200 MCG TABLET PO SCH (06:30)
[2025-05-18] MEDS ORDERED: DEXTROSE 50%-WATER 25 GM/50 ML SYRINGE IVP ONE (06:31)
[2025-05-18 06:41] LABS: GLUCOMETER DEV NAME(LOC) 5S.2E; GLUCOSE,POINT OF CARE 69 MG/DL (70-110)
[2025-05-18] MEDS: DEXTROSE 50%-WATER 25 GM/50 ML SYRINGE IVP PRN (06:46)
[2025-05-18 07:25] LABS: GLUCOMETER DEV NAME(LOC) 5S.2E; GLUCOSE,POINT OF CARE 155 MG/DL (70-110)
[2025-05-18 07:35] LABS: APPEARANCE,URINE TURBID (CLEAR); GLUCOSE, URINE (UA) NEGATIVE (NEGATIVE); LEUKOCYTE ESTERASE ,URINE LARGE (NEGATIVE); NITRATE,URINE NEGATIVE (NEGATIVE); OCCULT BLOOD,URINE MODERATE (NEGATIVE); SPECIFIC GRAVITIY, URINE 1.011 (1.003-1.030)
[2025-05-18 07:36] LABS: PLATELET COUNT (AUTO) 259 K/uL (150-450); RED BLOOD CELL COUNT(AUTO) 4.46 MIL/uL (4.00-5.20); RED CELL DISTRIBUTION WIDTH 17.8 % (11.5-14.5); WHITE BLOOD COUNT (AUTO) 5.9 K/uL (4.5-11.0)
[2025-05-18] MEDS: ESCITALOPRAM OXALATE 10 MG TABLET GT SCH (08:17)
[2025-05-18] MEDS: PANTOPRAZOLE SODIUM 40 MG DR TABLET PO SCH (08:17)
[2025-05-18] MEDS: SODIUM CHLORIDE 1 GM TABLET GT SCH (08:18)
[2025-05-18] MEDS: LOSARTAN POTASSIUM 25 MG TABLET PO SCH (08:18)
[2025-05-18 08:31] LABS: CALCIUM, TOTAL 9.8 mg/dL (8.8-10.5); CREATININE 3.42 mg/dL (0.60-1.30); GLOMERULAR FILTR. RATE CALC 13.0 mL/min (>60); GLUCOSE,RANDOM 163.0 mg/dL (70-110); SODIUM SERUM 137.0 mmol/L (136-145); UREA NITROGEN, BLOOD 83.0 mg/dL (7-18)
[2025-05-18 12:56] LABS: GLUCOMETER DEV NAME(LOC) 5N.2C; GLUCOSE,POINT OF CARE 98 MG/DL (70-110)
[2025-05-18] MEDS ORDERED: SODIUM CHLORIDE 0.9% 500 ML IV ONE (15:30)
[2025-05-18] MEDS: CefTRIAXone 1 GM/DEXTROSE 50 ML IV SCH (15:35)
[2025-05-18] MEDS: ACETYLCYSTEINE 10% 100 MG/ML 4 ML NEB SOLUTION NEB SCH (16:00)
[2025-05-18 19:21] LABS: GLUCOMETER DEV NAME(LOC) 5S.2E; GLUCOSE,POINT OF CARE 87 MG/DL (70-110)
[2025-05-18] MEDS ORDERED: 0.9% SODIUM CHLORIDE 5 ML NEB SOLUTION NEB ONE (23:08)
[2025-05-18] MEDS: ALBUTEROL SULFATE 2.5 MG/0.5 ML NEB SOLUTION NEB PRN (23:11)
[2025-05-19] VITALS (19 sets, daily range): BP systolic 96–117; BP diastolic 52–61; PULSE 81–107; RESP 18–28; TEMP 97.7–99; O2SAT 94–100
[2025-05-19 04:26] LABS: GLUCOMETER DEV NAME(LOC) 5S.2E; GLUCOSE,POINT OF CARE 126 MG/DL (70-110)
[2025-05-19 06:16] LABS: PLATELET COUNT (AUTO) 280 K/uL (150-450); RED BLOOD CELL COUNT(AUTO) 4.24 MIL/uL (4.00-5.20); RED CELL DISTRIBUTION WIDTH 18.5 % (11.5-14.5); WHITE BLOOD COUNT (AUTO) 6.0 K/uL (4.5-11.0)
[2025-05-19 06:28] LABS: CALCIUM, TOTAL 10.0 mg/dL (8.8-10.5); CREATININE 4.0 mg/dL (0.60-1.30); GLOMERULAR FILTR. RATE CALC 11.0 mL/min (>60); GLUCOSE,RANDOM 103.0 mg/dL (70-110); SODIUM SERUM 140.0 mmol/L (136-145); UREA NITROGEN, BLOOD 90.0 mg/dL (7-18)
[2025-05-19 08:10] LABS: GLUCOMETER DEV NAME(LOC) 5S.2E; GLUCOSE,POINT OF CARE 98 MG/DL (70-110)
[2025-05-19 11:26] LABS: GLUCOMETER DEV NAME(LOC) 5N.2C; GLUCOSE,POINT OF CARE 146 MG/DL (70-110)
[2025-05-20] VITALS (17 sets, daily range): BP systolic 95–127; BP diastolic 58–99; PULSE 86–106; RESP 19–22; TEMP 97.5–99; O2SAT 94–100
[2025-05-20 08:01] LABS: PLATELET COUNT (AUTO) 255 K/uL (150-450); RED BLOOD CELL COUNT(AUTO) 4.01 MIL/uL (4.00-5.20); RED CELL DISTRIBUTION WIDTH 18.7 % (11.5-14.5); WHITE BLOOD COUNT (AUTO) 6.5 K/uL (4.5-11.0)
[2025-05-20 08:06] LABS: CALCIUM, TOTAL 9.8 mg/dL (8.8-10.5); CREATININE 4.67 mg/dL (0.60-1.30); GLOMERULAR FILTR. RATE CALC 9.0 mL/min (>60); GLUCOSE,RANDOM 175.0 mg/dL (70-110); SODIUM SERUM 141.0 mmol/L (136-145); UREA NITROGEN, BLOOD 97.0 mg/dL (7-18)
[2025-05-20 08:31] LABS: GLUCOMETER DEV NAME(LOC) 5S.2E; GLUCOSE,POINT OF CARE 164 MG/DL (70-110)
[2025-05-20 08:31] LABS: GLUCOMETER DEV NAME(LOC) 5S.2E; GLUCOSE,POINT OF CARE 170 MG/DL (70-110)
[2025-05-20 08:54] LABS: RBC MORPHOLOGY COMMENT ABNORMAL RBC MORPH
[2025-05-20 14:21] LABS: GLUCOMETER DEV NAME(LOC) 5S.2E; GLUCOSE,POINT OF CARE 176 MG/DL (70-110)
[2025-05-21] VITALS (18 sets, daily range): BP systolic 112–127; BP diastolic 66–75; PULSE 100–110; RESP 20–25; TEMP 97.9–98.8; O2SAT 98–100
[2025-05-21 05:06] LABS: GLUCOMETER DEV NAME(LOC) 5N.2C; GLUCOSE,POINT OF CARE 150 MG/DL (70-110)
[2025-05-21 11:01] LABS: GLUCOMETER DEV NAME(LOC) 5N.2C; GLUCOSE,POINT OF CARE 186 MG/DL (70-110)
[2025-05-21] MEDS: MORPHINE SULFATE 4 MG/ML SYRINGE IVP PRN (13:10)
[2025-05-21 16:31] LABS: GLUCOMETER DEV NAME(LOC) 5N.2C; GLUCOSE,POINT OF CARE 143 MG/DL (70-110)
[2025-05-21 20:30] LABS: GLUCOMETER DEV NAME(LOC) 5N.2C; GLUCOSE,POINT OF CARE 170 MG/DL (70-110)
[2025-05-22] VITALS (18 sets, daily range): BP systolic 110–184; BP diastolic 63–101; PULSE 103–115; RESP 16–24; TEMP 97.9–99; O2SAT 89–100
[2025-05-22 00:01] LABS: GLUCOMETER DEV NAME(LOC) 5S.2E; GLUCOSE,POINT OF CARE 184 MG/DL (70-110)
[2025-05-22 02:11] LABS: GLUCOMETER DEV NAME(LOC) 5S.2E; GLUCOSE,POINT OF CARE 145 MG/DL (70-110)
[2025-05-22 02:11] LABS: GLUCOMETER DEV NAME(LOC) 5S.2E; GLUCOSE,POINT OF CARE 121 MG/DL (70-110)
[2025-05-22] MEDS: DEXTROSE 5%-0.45% SODIUM CHL 1,000 ML IV SCH (03:53)
[2025-05-22] MEDS: CHLORHEXIDINE GLUCONATE 2% TOWELETTE [2'S/6'S] TP ONE (04:18)
[2025-05-22 06:40] LABS: GLUCOMETER DEV NAME(LOC) 5S.2E; GLUCOSE,POINT OF CARE 133 MG/DL (70-110)
[2025-05-22 06:40] LABS: GLUCOMETER DEV NAME(LOC) 5S.2E; GLUCOSE,POINT OF CARE 123 MG/DL (70-110)
[2025-05-22 08:31] LABS: CALCIUM, TOTAL 10.2 mg/dL (8.8-10.5); CREATININE 5.04 mg/dL (0.60-1.30); GLOMERULAR FILTR. RATE CALC 9.0 mL/min (>60); GLUCOSE,RANDOM 128.0 mg/dL (70-110); SODIUM SERUM 141.0 mmol/L (136-145)
[2025-05-22 08:34] LABS: UREA NITROGEN, BLOOD 103.0 mg/dL (7-18)
[2025-05-22 10:02] LABS: PLATELET COUNT (AUTO) 247 K/uL (150-450); RED BLOOD CELL COUNT(AUTO) 4.21 MIL/uL (4.00-5.20); RED CELL DISTRIBUTION WIDTH 18.8 % (11.5-14.5); WHITE BLOOD COUNT (AUTO) 7.3 K/uL (4.5-11.0)
[2025-05-22 10:26] LABS: RBC MORPHOLOGY COMMENT ABNORMAL RBC MORPH
[2025-05-22] MEDS ORDERED: SODIUM CHLORIDE 0.9% 1,000 ML IV ONE (11:30)
[2025-05-22 18:21] LABS: GLUCOMETER DEV NAME(LOC) 5N.2C; GLUCOSE,POINT OF CARE 125 MG/DL (70-110)
[2025-05-22 18:21] LABS: GLUCOMETER DEV NAME(LOC) 5S.2E; GLUCOSE,POINT OF CARE 130 MG/DL (70-110)
[2025-05-22] MEDS: CHLORHEXIDINE GLUCONATE 2% TOWELETTE [2'S/6'S] TP SCH (21:19)
[2025-05-23] VITALS (19 sets, daily range): BP systolic 98–131; BP diastolic 54–94; PULSE 86–106; RESP 18–23; TEMP 97.4–99; O2SAT 97–100
[2025-05-23 05:41] LABS: GLUCOMETER DEV NAME(LOC) ICU.S7; GLUCOSE,POINT OF CARE 92 MG/DL (70-110)
[2025-05-23 06:52] LABS: CALCIUM, TOTAL 10.4 mg/dL (8.8-10.5); CREATININE 4.69 mg/dL (0.60-1.30); GLOMERULAR FILTR. RATE CALC 9.0 mL/min (>60); GLUCOSE,RANDOM 82.0 mg/dL (70-110); SODIUM SERUM 142.0 mmol/L (136-145); UREA NITROGEN, BLOOD 98.0 mg/dL (7-18)
[2025-05-23 08:23] LABS: PLATELET COUNT (AUTO) 213 K/uL (150-450); RED BLOOD CELL COUNT(AUTO) 4.68 MIL/uL (4.00-5.20); RED CELL DISTRIBUTION WIDTH 18.6 % (11.5-14.5); WHITE BLOOD COUNT (AUTO) 7.8 K/uL (4.5-11.0)
[2025-05-23 08:25] LABS: GLUCOMETER DEV NAME(LOC) 5N.2C; GLUCOSE,POINT OF CARE 121 MG/DL (70-110)
[2025-05-23 08:25] LABS: GLUCOMETER DEV NAME(LOC) 5N.2C; GLUCOSE,POINT OF CARE 113 MG/DL (70-110)
[2025-05-23] MEDS ORDERED: DOCUSATE SODIUM 100 MG/10 ML LIQUID UDCUP PO SCH ×2 (09:00→21:00)
[2025-05-23 09:58] LABS: RBC MORPHOLOGY COMMENT ABNORMAL RBC MORPH
[2025-05-23 11:31] LABS: GLUCOMETER DEV NAME(LOC) ICUN.7; GLUCOSE,POINT OF CARE 105 MG/DL (70-110)
[2025-05-23] MEDS ORDERED: MIDAZOLAM HCL 2 MG/2 ML VIAL ONE (13:18)
[2025-05-23] MEDS ORDERED: MIDAZOLAM HCL 2 MG/2 ML VIAL IVP ONE (13:30)
[2025-05-23] MEDS: MIDAZOLAM HCL 2 MG/2 ML VIAL IVP ONE (13:32)
[2025-05-23] MEDS: FentaNYL CITRATE PF 100 MCG/2 ML VIAL IVP ONE (13:52)
[2025-05-23] MEDS: PIPERACILLIN SODIUM/TAZOBACTAM 2.25 GM in DEXTROSE 5%-WATER 50 ML IV SCH (14:17)
[2025-05-23 20:15] LABS: GLUCOMETER DEV NAME(LOC) ICU.S7; GLUCOSE,POINT OF CARE 120 MG/DL (70-110)
[2025-05-23] MEDS: DOCUSATE SODIUM 100 MG/10 ML LIQUID UDCUP GT SCH (21:05)
[2025-05-23 21:25] LABS: GLUCOMETER DEV NAME(LOC) ICUN.7; GLUCOSE,POINT OF CARE 126 MG/DL (70-110)
[2025-05-23] MEDS: ETHYL ALCOHOL 62% ANTISEPTIC NASAL SANITIZER 0.6 ML AMPUL NASAL SCH (22:51)
[2025-05-24] VITALS (21 sets, daily range): BP systolic 97–121; BP diastolic 59–79; PULSE 100–108; RESP 16–23; TEMP 97.2–98; O2SAT 98–100
[2025-05-24 05:06] LABS: GLUCOMETER DEV NAME(LOC) ICU.S7; GLUCOSE,POINT OF CARE 86 MG/DL (70-110)
[2025-05-24 05:06] LABS: GLUCOMETER DEV NAME(LOC) ICUN.7; GLUCOSE,POINT OF CARE 114 MG/DL (70-110)
[2025-05-24 05:56] LABS: PLATELET COUNT (AUTO) 216 K/uL (150-450); RED BLOOD CELL COUNT(AUTO) 4.55 MIL/uL (4.00-5.20); RED CELL DISTRIBUTION WIDTH 17.9 % (11.5-14.5); WHITE BLOOD COUNT (AUTO) 6.1 K/uL (4.5-11.0)
[2025-05-24 06:19] LABS: CALCIUM, TOTAL 10.2 mg/dL (8.8-10.5); CREATININE 4.47 mg/dL (0.60-1.30); GLOMERULAR FILTR. RATE CALC 10.0 mL/min (>60); GLUCOSE,RANDOM 87.0 mg/dL (70-110); SODIUM SERUM 143.0 mmol/L (136-145); UREA NITROGEN, BLOOD 92.0 mg/dL (7-18)
[2025-05-24 09:10] LABS: GLUCOMETER DEV NAME(LOC) ICUN.7; GLUCOSE,POINT OF CARE 108 MG/DL (70-110)
[2025-05-24] MEDS: ACETYLCYSTEINE 10% 100 MG/ML 4 ML NEB SOLUTION NEB ONE (11:00)
[2025-05-24] MEDS: ALBUTEROL SULFATE 2.5 MG/0.5 ML NEB SOLUTION NEB SCH (11:00)
[2025-05-24] MEDS: IPRATROPIUM BROMIDE 0.5 MG/2.5 ML NEB SOLUTION NEB SCH (11:00)
[2025-05-24 12:30] LABS: GLUCOMETER DEV NAME(LOC) ICUN.7; GLUCOSE,POINT OF CARE 112 MG/DL (70-110)
[2025-05-24 12:42] LABS: ABG BASE EXCESS -9.1 mmol/L (-2.0-3.0); ABG CARBOXYHEMOGLOBIN 1.2 % (0.5-1.5); ABG HCO3 18.1 mmol/L (21.0-28.0); ABG METHEMOGLOBIN 0.3 % (0.0-1.5); ABG OXYGEN CONTENT 18.4 mL/dL (15.0-23.0); ABG OXYGEN SATURATION 93.6 % (94.0-98.0); ABG OXYHEMOGLOBIN 92.2 % (94.0-98.0); ABG PCO2 31 mmHg (32.0-45.0); ABG PH 7.348 (7.350-7.450); ABG TOTAL HEMOGLOBIN 14.2 G/dL (12.0-16.0); FRACTIONATED INSPIRED OXYGEN 30.0 % (21-100.0); PO2, ARTERIAL BG 63.7 mmHg (83.0-108.0); SOURCE, BLOOD GAS ARTERIAL; TEMPERATURE, FAHRENHEIT, BG 97.0 FAHREN (96.0-98.6)
[2025-05-24 12:43] LABS: ABG A-A DIFF O2 115.0 mmHg (10-20.0); ALLEN TEST, BLOOD GAS Positive; O2 DEVICE,BLOOD GAS VENTILATOR (ROOM AIR); PEEP,BG 5 cm H2O; SET RATE, BG 20.0 min.; SITE, BLOOD GAS RT RADIAL; VT, ABG 450 ml
[2025-05-24] MEDS: ACETYLCYSTEINE 10% 100 MG/ML 4 ML NEB SOLUTION NEB SCH (13:00)
[2025-05-24] MEDS: ALBUMIN HUMAN 5%-12.5GM/250ML 250 ML IV ONE (14:25)
[2025-05-24] MEDS ORDERED: DIATRIZOATE MEGLU/SOD 660/100 MG/ML 120 ML BOTTLE ONE (16:19)
[2025-05-24] MEDS: DIATRIZOATE MEGLU/SOD 660/100 MG/ML 120 ML BOTTLE PEG ONE (16:52)
[2025-05-24 20:05] LABS: GLUCOMETER DEV NAME(LOC) ICUN.7; GLUCOSE,POINT OF CARE 156 MG/DL (70-110)
[2025-05-24] MEDS: BUDESONIDE 0.5 MG/2 ML NEB SOLUTION NEB SCH (20:07)
[2025-05-24] MEDS ORDERED: DEXTROSE 50%-WATER 25 GM/50 ML SYRINGE IVP PRN (20:15)
[2025-05-25] VITALS (41 sets, daily range): BP systolic 91–122; BP diastolic 54–75; PULSE 83–116; RESP 18–24; TEMP 97.1–98.1; O2SAT 99–100
[2025-05-25 00:31] LABS: GLUCOMETER DEV NAME(LOC) ICUN.7; GLUCOSE,POINT OF CARE 151 MG/DL (70-110)
[2025-05-25 05:46] LABS: GLUCOMETER DEV NAME(LOC) ICU.S7; GLUCOSE,POINT OF CARE 166 MG/DL (70-110)
[2025-05-25 06:22] LABS: PLATELET COUNT (AUTO) 207 K/uL (150-450); RED BLOOD CELL COUNT(AUTO) 4.27 MIL/uL (4.00-5.20); RED CELL DISTRIBUTION WIDTH 18.7 % (11.5-14.5); WHITE BLOOD COUNT (AUTO) 6.6 K/uL (4.5-11.0)
[2025-05-25 06:34] LABS: CALCIUM, TOTAL 10.1 mg/dL (8.8-10.5); CREATININE 4.69 mg/dL (0.60-1.30); GLOMERULAR FILTR. RATE CALC 9 mL/min (>60); GLUCOSE,RANDOM 138 mg/dL (70-110); SODIUM SERUM 140 mmol/L (136-145); TROPONIN I-HIGH SENSITIVITY 24 ng/L (<51); UREA NITROGEN, BLOOD 91 mg/dL (7-18)
[2025-05-25 06:51] LABS: GLUCOMETER DEV NAME(LOC) ICUN.7; GLUCOSE,POINT OF CARE 142 MG/DL (70-110)
[2025-05-25] MEDS ORDERED: SODIUM CHLORIDE 0.9% 250 ML IV ONE (08:51)
[2025-05-25] MEDS ORDERED: LIDOCAINE/PF 1% 30 ML VIAL ONE (09:29)
[2025-05-25] MEDS ORDERED: SODIUM BICARBONATE 50 MEQ/50 ML VIAL ONE (09:29)
[2025-05-25] MEDS ORDERED: FentaNYL CITRATE PF 100 MCG/2 ML VIAL ONE (09:43)
[2025-05-25] MEDS ORDERED: MIDAZOLAM HCL 2 MG/2 ML VIAL ONE (09:43)
[2025-05-25] MEDS: MIDAZOLAM HCL 2 MG/2 ML VIAL IVP ONE (10:06)
[2025-05-25] MEDS: FentaNYL CITRATE PF 100 MCG/2 ML VIAL IVP ONE (10:06)
[2025-05-25] MEDS: LIDOCAINE 1% 30 ML/SOD BICARB 8.4% 4 ML SQ ONE (10:07)
[2025-05-25] MEDS: HEPARIN SODIUM,PORCINE 1,000 UNITS/ML 10 ML VIAL IVP ONE (11:48)
[2025-05-25 11:50] LABS: GLUCOMETER DEV NAME(LOC) ICU.S7; GLUCOSE,POINT OF CARE 144 MG/DL (70-110)
[2025-05-25] MEDS ORDERED: HEPARIN SODIUM,PORCINE 1,000 UNITS/ML VIAL ONE (12:39)
[2025-05-25 19:26] LABS: GLUCOMETER DEV NAME(LOC) ICU.S7; GLUCOSE,POINT OF CARE 167 MG/DL (70-110)
[2025-05-25] MEDS ORDERED: SODIUM CHLORIDE 0.9% 1,000 ML ONE (20:01)
[2025-05-25] MEDS: HEPARIN SODIUM,PORCINE 1,000 UNITS/ML VIAL IVCATH ONE ×2 (22:15)
[2025-05-26] VITALS (48 sets, daily range): BP systolic 87–122; BP diastolic 47–76; PULSE 92–150; RESP 20–24; TEMP 96.2–98; O2SAT 100
[2025-05-26 00:41] LABS: GLUCOMETER DEV NAME(LOC) ICU.S7; GLUCOSE,POINT OF CARE 143 MG/DL (70-110)
[2025-05-26 06:45] LABS: GLUCOMETER DEV NAME(LOC) ICU.S7; GLUCOSE,POINT OF CARE 158 MG/DL (70-110)
[2025-05-26 07:00] LABS: PLATELET COUNT (AUTO) 185 K/uL (150-450); RED BLOOD CELL COUNT(AUTO) 4.46 MIL/uL (4.00-5.20); RED CELL DISTRIBUTION WIDTH 18.4 % (11.5-14.5); WHITE BLOOD COUNT (AUTO) 8.0 K/uL (4.5-11.0)
[2025-05-26 07:15] LABS: CALCIUM, TOTAL 9.8 mg/dL (8.8-10.5); CREATININE 3.46 mg/dL (0.60-1.30); GLOMERULAR FILTR. RATE CALC 13.0 mL/min (>60); GLUCOSE,RANDOM 150.0 mg/dL (70-110); SODIUM SERUM 136.0 mmol/L (136-145); UREA NITROGEN, BLOOD 53.0 mg/dL (7-18)
[2025-05-26 07:40] LABS: PHOSPHORUS 4.1 mg/dL (2.5-4.9)
[2025-05-26] MEDS: HYDROCODONE/ACETAMINOPHEN 5-325 MG TABLET PO SCH (10:19)
[2025-05-26] MEDS ORDERED: LOPERAMIDE HCL 2 MG CAPSULE GT PRN (11:15)
[2025-05-26 11:40] LABS: GLUCOMETER DEV NAME(LOC) ICUN.7; GLUCOSE,POINT OF CARE 160 MG/DL (70-110)
[2025-05-26] MEDS ORDERED: HEPARIN SODIUM,PORCINE 1,000 UNITS/ML 10 ML VIAL ONE (12:15)
[2025-05-26] MEDS ORDERED: SODIUM CHLORIDE 0.9% 1,000 ML ONE ×2 (12:53→12:54)
[2025-05-26] MEDS: MIDODRINE HCL 5 MG TABLET PO PRN (13:54)
[2025-05-26] MEDS: ALBUMIN HUMAN 25%-12.5GM/50ML 100 ML IV PRN (15:19)
[2025-05-26] MEDS: HEPARIN SODIUM,PORCINE 1,000 UNITS/ML VIAL IVCATH ONE ×2 (17:20→17:21)
[2025-05-26 17:30] LABS: GLUCOMETER DEV NAME(LOC) ICUN.7; GLUCOSE,POINT OF CARE 125 MG/DL (70-110)
[2025-05-26 22:31] LABS: GLUCOMETER DEV NAME(LOC) ICUN.7; GLUCOSE,POINT OF CARE 144 MG/DL (70-110)
[2025-05-27] VITALS (36 sets, daily range): BP systolic 84–114; BP diastolic 57–72; PULSE 100–111; RESP 20–22; TEMP 96.7–97.8; O2SAT 100
[2025-05-27] MEDS ORDERED: HYDROCODONE/ACETAMINOPHEN 5-325 MG TABLET PO SCH
[2025-05-27] MEDS: HYDROCODONE/ACETAMINOPHEN 5-325 MG TABLET GT SCH (00:49)
[2025-05-27] MEDS ORDERED: SODIUM CHLORIDE 0.9% 2,000 ML ONE (05:29)
[2025-05-27] MEDS: MIDODRINE HCL 5 MG TABLET PO ONE (05:47)
[2025-05-27 06:26] LABS: GLUCOMETER DEV NAME(LOC) ICUN.7; GLUCOSE,POINT OF CARE 114 MG/DL (70-110)
[2025-05-27] MEDS: HEPARIN SODIUM,PORCINE 1,000 UNITS/ML VIAL IVCATH ONE ×2 (08:03)
[2025-05-27 08:37] LABS: PLATELET COUNT (AUTO) 169 K/uL (150-450); RED BLOOD CELL COUNT(AUTO) 4.61 MIL/uL (4.00-5.20); RED CELL DISTRIBUTION WIDTH 18.2 % (11.5-14.5); WHITE BLOOD COUNT (AUTO) 8.2 K/uL (4.5-11.0)
[2025-05-27 08:47] LABS: CALCIUM, TOTAL 10.1 mg/dL (8.8-10.5); CREATININE 1.93 mg/dL (0.60-1.30); GLOMERULAR FILTR. RATE CALC 26.0 mL/min (>60); GLUCOSE,RANDOM 101.0 mg/dL (70-110); SODIUM SERUM 135.0 mmol/L (136-145); UREA NITROGEN, BLOOD 17.0 mg/dL (7-18)
[2025-05-27 08:50] LABS: PHOSPHORUS 2.3 mg/dL (2.5-4.9)
[2025-05-27] MEDS ORDERED: ALBUMIN HUMAN 25%-12.5GM/50ML IV BOTTLE ONE (12:09)
[2025-05-27] MEDS ORDERED: HEPARIN SODIUM,PORCINE 1,000 UNITS/ML 10 ML VIAL ONE (12:09)
[2025-05-27 13:36] LABS: GLUCOMETER DEV NAME(LOC) ICUN.7; GLUCOSE,POINT OF CARE 112 MG/DL (70-110)
[2025-05-27] MEDS: ASPIRIN 81 MG CHEWABLE TABLET GT SCH (17:30)
[2025-05-27 18:46] LABS: GLUCOMETER DEV NAME(LOC) ICUN.7; GLUCOSE,POINT OF CARE 171 MG/DL (70-110)
[2025-05-27] MEDS: ATORVASTATIN CALCIUM 40 MG TABLET GT SCH (20:43)
[2025-05-27] MEDS ORDERED: DEXTROSE 50%-WATER 25 GM/50 ML SYRINGE IVP PRN (21:45)
[2025-05-28] VITALS (29 sets, daily range): BP systolic 100–146; BP diastolic 52–92; PULSE 87–114; RESP 12–22; TEMP 97.6–97.8; O2SAT 99–100
[2025-05-28] MEDS ORDERED: SODIUM CHLORIDE 0.9% 250 ML IV ONE (00:10)
[2025-05-28] MEDS: INSULIN LISPRO 100 UNITS/ML SQ PRN (00:28)
[2025-05-28 01:26] LABS: GLUCOMETER DEV NAME(LOC) ICU.S7; GLUCOSE,POINT OF CARE 142 MG/DL (70-110)
[2025-05-28 06:28] LABS: PLATELET COUNT (AUTO) 182 K/uL (150-450); RED BLOOD CELL COUNT(AUTO) 4.71 MIL/uL (4.00-5.20); RED CELL DISTRIBUTION WIDTH 17.9 % (11.5-14.5); WHITE BLOOD COUNT (AUTO) 9.2 K/uL (4.5-11.0)
[2025-05-28 06:30] LABS: GLUCOMETER DEV NAME(LOC) ICUN.7; GLUCOSE,POINT OF CARE 200 MG/DL (70-110)
[2025-05-28 06:38] LABS: CALCIUM, TOTAL 10.6 mg/dL (8.8-10.5); CREATININE 2.95 mg/dL (0.60-1.30); GLOMERULAR FILTR. RATE CALC 16.0 mL/min (>60); GLUCOSE,RANDOM 166.0 mg/dL (70-110); SODIUM SERUM 133.0 mmol/L (136-145); UREA NITROGEN, BLOOD 33.0 mg/dL (7-18)
[2025-05-28 06:40] LABS: PHOSPHORUS 3.5 mg/dL (2.5-4.9)
[2025-05-28 07:31] LABS: GLUCOMETER DEV NAME(LOC) ICUN.7; GLUCOSE,POINT OF CARE 136 MG/DL (70-110)
[2025-05-28] MEDS ORDERED: EPINEPHrine 1:10,000 [1 MG/10 ML] SYRINGE IVP ONE (12:00)
[2025-05-28 13:26] LABS: GLUCOMETER DEV NAME(LOC) ICUN.7; GLUCOSE,POINT OF CARE 162 MG/DL (70-110)
[2025-05-28 18:20] LABS: GLUCOMETER DEV NAME(LOC) ICUN.7; GLUCOSE,POINT OF CARE 156 MG/DL (70-110)
[2025-05-28 21:11] LABS: GLUCOMETER DEV NAME(LOC) ICUN.7; GLUCOSE,POINT OF CARE 133 MG/DL (70-110)
[2025-05-28 23:40] LABS: GLUCOMETER DEV NAME(LOC) ICU.S7; GLUCOSE,POINT OF CARE 123 MG/DL (70-110)
[2025-05-29] VITALS (23 sets, daily range): BP systolic 11–142; BP diastolic 59–91; PULSE 100–110; RESP 18–22; TEMP 97–98.3; O2SAT 100
[2025-05-29 06:03] LABS: PLATELET COUNT (AUTO) 198 K/uL (150-450); RED BLOOD CELL COUNT(AUTO) 4.50 MIL/uL (4.00-5.20); RED CELL DISTRIBUTION WIDTH 18.0 % (11.5-14.5); WHITE BLOOD COUNT (AUTO) 9.2 K/uL (4.5-11.0)
[2025-05-29 06:34] LABS: CALCIUM, TOTAL 10.7 mg/dL (8.8-10.5); CREATININE 4.01 mg/dL (0.60-1.30); GLOMERULAR FILTR. RATE CALC 11.0 mL/min (>60); GLUCOSE,RANDOM 149.0 mg/dL (70-110); SODIUM SERUM 133.0 mmol/L (136-145); UREA NITROGEN, BLOOD 58.0 mg/dL (7-18)
[2025-05-29 06:55] LABS: GLUCOMETER DEV NAME(LOC) ICU.S7; GLUCOSE,POINT OF CARE 148 MG/DL (70-110)
[2025-05-29] MEDS: HEPARIN SODIUM,PORCINE 1,000 UNITS/ML VIAL IVCATH PRN ×2 (08:00)
[2025-05-29] MEDS ORDERED: HEPARIN SODIUM,PORCINE 1,000 UNITS/ML VIAL ONE (12:00)
[2025-05-29 13:15] LABS: GLUCOMETER DEV NAME(LOC) ICUN.7; GLUCOSE,POINT OF CARE 178 MG/DL (70-110)
== END 2025-05-29 13:40 | DRG 207 ==
LOC: EMS 11:18 → EDH 12:56 → 5S 15:19 → ICU 05-23 01:41
PROVIDERS: ADMIT Internal Medicine; ATTEND Internal Medicine
PROC: 5A1955Z Respiratory Ventilation, Greater than 96 Consecutive Hours (ICD-10-PCS; principal; 2025-05-17)
PROC: 0DH63UZ Insertion of Feeding Device into Stomach, Percutaneous Approach (ICD-10-PCS; 2025-05-21)
PROC: 5A1D70Z Performance of Urinary Filtration, Intermittent, Less than 6 Hours Per Day (ICD-10-PCS; 2025-05-25)
PROC: 0JH63XZ Insertion of Tunneled Vascular Access Device into Chest Subcutaneous Tissue and Fascia, Percutaneous Approach (ICD-10-PCS; 2025-05-25)
PROC: 02H633Z Insertion of Infusion Device into Right Atrium, Percutaneous Approach (ICD-10-PCS; 2025-05-25)
PROC: B5181ZA Fluoroscopy of Superior Vena Cava using Low Osmolar Contrast, Guidance (ICD-10-PCS; 2025-05-25)
PROC: B548ZZA Ultrasonography of Superior Vena Cava, Guidance (ICD-10-PCS; 2025-05-25)
PROC: 5A1D70Z Performance of Urinary Filtration, Intermittent, Less than 6 Hours Per Day (ICD-10-PCS; 2025-05-26)
PROC: 5A1D70Z Performance of Urinary Filtration, Intermittent, Less than 6 Hours Per Day (ICD-10-PCS; 2025-05-27)
PROC: 5A1D70Z Performance of Urinary Filtration, Intermittent, Less than 6 Hours Per Day (ICD-10-PCS; 2025-05-29)
DX: T17.998A Other foreign object in respiratory tract, part unspecified causing other injury, initial encounter (principal); J96.21 Acute and chronic respiratory failure with hypoxia; N18.6 End stage renal disease; G93.40 Encephalopathy, unspecified; I13.2 Hypertensive heart and chronic kidney disease with heart failure and with stage 5 chronic kidney disease, or end stage renal disease; E46 Unspecified protein-calorie malnutrition; R64 Cachexia; N17.9 Acute kidney failure, unspecified; K94.23 Gastrostomy malfunction; E86.0 Dehydration; N39.0 Urinary tract infection, site not specified; Z99.11 Dependence on respirator [ventilator] status; D63.1 Anemia in chronic kidney disease; E03.9 Hypothyroidism, unspecified; F03.90 Unspecified dementia, unspecified severity, without behavioral disturbance, psychotic disturbance, mood disturbance, and anxiety; G40.909 Epilepsy, unspecified, not intractable, without status epilepticus; E11.22 Type 2 diabetes mellitus with diabetic chronic kidney disease; J98.11 Atelectasis; R13.10 Dysphagia, unspecified; I48.91 Unspecified atrial fibrillation; E88.09 Other disorders of plasma-protein metabolism, not elsewhere classified; E78.00 Pure hypercholesterolemia, unspecified; I45.4 Nonspecific intraventricular block; N32.0 Bladder-neck obstruction; R62.7 Adult failure to thrive; W44.F9XA Other object of natural or organic material, entering into or through a natural orifice, initial encounter; Y93.89 Activity, other specified; Y92.89 Other specified places as the place of occurrence of the external cause; Y99.8 Other external cause status; Z86.718 Personal history of other venous thrombosis and embolism; Z86.73 Personal history of transient ischemic attack (TIA), and cerebral infarction without residual deficits; Z68.26 Body mass index [BMI] 26.0-26.9, adult
CPT/HCPCS: 36245; 36561; 71045; 74018; 76000; 80048; 80076; 81001; 82271; 82805; 82962; 83735; 83880; 84100; 84439; 84443; 84484; 85025; 85610; 85730; 87081; 87086; 87340; 89055; 90935; 93005; 93306; 94002; 94003; 94640; 94760; 97167; 97168; 99285; J0169; J0696; J1644; J1815; J2250; J2270; J2543; J3010; J3490; J7030; J7040; J7050; J7060; P9041; P9047; 36415-L1; 36415-TC; J7613